=== PATIENT | female | born 1980 | race Caucasian/White ===

== ENCOUNTER 2017-07-07 14:39 | Emergency (ER) | payer OTHER ==
--- NOTE | 2017-07-07 14:52 | PDOC ---
Rapid Medical Evaluation Chief Complaint: Urinary Problem Time Seen by Provider: 07/07/17 14:50 Medical Evaluation: Allergies Allergy/AdvReac Type Severity Reaction Status Date / Time No Known Allergies Allergy Verified 03/13/15 14:28 07/07/17 14:50 I have performed a brief in-person evaluation of this patient. The patient presents with a chief complaint of: urinary pain with hematuria, hx of recurrent UTI and kidney stones,+nausea x 2 days, "i also feel bloated and have trouble breathing", LMP 07/07 Pertinent physical exam findings: well appearing I have ordered the following: UA, UCx, urine preg The patient will proceed to the ED for further evaluation. Discharge Disposition - Diagnosis Urinary problem - Referrals - Patient Instructions - Post Discharge Activity
[2017-07-07 14:53] VITALS: BMI 31.2
--- NOTE | 2017-07-07 15:49 | PDOC ---
History of Present Illness - General Chief Complaint: Urinary Problem Stated Complaint: URINATING BLOOD Time Seen by Provider: 07/07/17 14:50 History Source: Patient Exam Limitations: No Limitations - History of Present Illness Initial Comments: 07/07/17 16:31 Pt is a 37 F with PMHx of RhA, plaque psoariasis, depression, thyroid cancer, fibromyalgia, congenital kidney disease with recurrent renal stones presenting with a 5 day hx of chills, and dysuria. Patient has burning on micturition, with associated suprapubic and L flank pain non relieved with tylenol or percocet at home. No objective fevers, no cervical discharge. There is also significant hematuria, with urinary sediments. Patient has recurrent constipation (is on linzess), no diarrhea. Timing/Duration: getting worse Severity: moderate Associated Symptoms: reports: fever/chills. denies: chest pain, cough, diaphoresis Past History - Past Medical History Allergies/Adverse Reactions: Allergies Allergy/AdvReac Type Severity Reaction Status Date / Time hydrochlorothiazide Allergy Intermediate Rash Verified 07/07/17 14:54 NSAIDS (Non-Steroidal Allergy Intermediate Rash Verified 07/07/17 14:54 Anti-Inflamma Home Medications: Ambulatory Orders Valacyclovir HCl [Valtrex -] 1,000 mg PO DAILY 03/13/15 Ascorbic Acid [Vitamin C] 250 mg PO DAILY 07/07/17 Levothyroxine [Synthroid -] 175 mcg PO DAILY 07/07/17 Oxycodone HCl/Acetaminophen [Percocet 5-325 mg Tablet] 1 - 2 tab PO Q6H #20 tablet MDD 4 07/07/17 Disorders: Yes (recurrent stones) HTN: Yes Psychiatric Problems: Yes (depression) Thyroid Disease: Yes (ca) - Surgical History Abdominal Surgery: Yes (hernia repair) Cholecystectomy: Yes GI Surgery: Yes (sleeve) - Suicide/Smoking/Psychosocial Hx Smoking History: Never smoked Have you smoked in the past 12 months: No Number of Cigarettes Smoked Daily: 6 Information on smoking cessation initiated: No Hx Alcohol Use: No Drug/Substance Use Hx: No Substance Use Type: None Review of Systems - Review of Systems Constitutional: Yes: Chills. No: Fever Respiratory: No: Cough, Shortness of Breath Cardiac (ROS): No: Chest Pain ABD/GI: Yes: Abdominal Distended, Constipated : Yes: Burning, Flank Pain (Left flank), Hematuria Musculoskeletal: Yes: Back Pain Hematologic/Lymphatic: Yes: Easy Bleeding (Patient reports prolonged menses) *Physical Exam - Vital Signs Last Vital Signs Temp Pulse Resp BP Pulse Ox 97.7 F 97 H 16 139/89 100 07/07/17 14:51 07/07/17 14:51 07/07/17 14:51 07/07/17 14:51 07/07/17 14:51 - Physical Exam General Appearance: Yes: Mild Distress HEENT: positive: Other (bilateral hyperemic fissures at angle of mouth) ED Treatment Course - LABORATORY CBC & Chemistry Diagram: 07/07/17 16:16 07/07/17 16:16 - RADIOLOGY Radiology Studies Ordered: 07/07/17 20:[address] renal stones- shows 2mm non obstructive in L renal calculus. Plan: Pain mx - Tabs percocet Continue outpatient follow up D/C home *DC/Admit/Observation/Transfer Diagnosis at time of Disposition: Urinary problem, Urinary tract stones, Renal calculus, left - Discharge Dispostion Disposition: HOME Condition at time of disposition: Fair Admit: No - Prescriptions Prescriptions: Oxycodone HCl/Acetaminophen [Percocet 5-325 mg Tablet] 1 - 2 tab PO Q6H #20 tablet MDD 4 - Referrals Referrals: Alfredo Joyce MD [Staff Physician] - 1 week Víctor Ott MD [Staff Physician] - 2 Days - Patient Instructions Printed Discharge Instructions: Kidney Stones -- Adult Additional Instructions: Call Dr Martel's office to book a follow up in one week Follow up with your primary care physician. Call Dr Ott's clinic at [phone], and say you want to be seen by Dr Melanie Jolley at [facility] this (07/09/17) between 1-4.30pm. Please call to make an appointment. If you have pain take percocet as prescribed. May sure to stay adequately hydrated. If you have worsening symptoms, shortness of breath or chest pain return to the emergency department - Post Discharge Activity - Attestations Physician Attestion: 07/07/17 20:51 Melanie Jolley MD
[2017-07-07] MEDS ORDERED: morphine CARPU-JECT 4 MG/1 ML DISP.SYRIN IVPUSH ONE (16:22)
[2017-07-07 16:26] LABS: URINE APPEARANCE CLOUDY; URINE BILIRUBIN NEGATIVE (<2.0 mg/dL); URINE BLOOD 3+ (NEGATIVE); URINE COLOR DKYELLOW; URINE GLUCOSE (UA) NEGATIVE (NEGATIVE); URINE KETONE TRACE (NEGATIVE); URINE LEUK ESTERASE TRACE (NEGATIVE); URINE NITRITE NEGATIVE (NEGATIVE); URINE PROTEIN NEGATIVE (NEGATIVE)
[2017-07-07 16:29] LABS: HCG,QUALITATIVE URINE NEGATIVE
[2017-07-07] MEDS ORDERED: SODIUM CHLORIDE 1,000 ML IV SCH (16:30)
[2017-07-07] MEDS ORDERED: MORPHINE SULFATE 10 MG/1 ML *VIAL ONE ×2 (16:31→22:23)
[2017-07-07 16:54] LABS: BASO % 0.8 % (0-2.0); EOS % 0.7 % (0-4.5); HEMATOCRIT 30.3 % (32.4-45.2); LYMPH % 20.4 % (8-40); MCHC 32.9 g/dl (32.0-36.0); MEAN CELL VOLUME 82.2 fl (80-96); MEAN PLT VOLUME 7.6 fl (7.5-11.1); MONO % 7.1 % (3.8-10.2); PLATELET COUNT 351 K/MM3 (134-434); RBC 3.69 M/mm3 (3.60-5.2); RDW 15.9 % (11.6-15.6); WHITE BLOOD COUNT 9.7 K/mm3 (4.0-10.0)
[2017-07-07 17:28] LABS: ALBUMIN 3.6 g/dl (3.4-5.0); ALK PHOS 94 U/L (45-117); ANION GAP 5 (8-16); BLOOD UREA NITROGEN 11 mg/dL (7-18); CALCIUM 8.6 mg/dL (8.5-10.1); CHLORIDE 109 mmol/L (98-107); CO2 26 mmol/L (21-32); CREATININE 0.7 mg/dL (0.55-1.02); GLUCOSE,RANDOM 87 mg/dL (74-106); POTASSIUM 4.2 mmol/L (3.5-5.1); SGOT/AST 23 U/L (15-37); SGPT/ALT 23 U/L (12-78); SODIUM 140 mmol/L (136-145); TOT PROT 7.6 g/dl (6.4-8.2)
--- NOTE | 2017-07-07 17:34 | PDOC ---
Attending Attestation - Resident Resident Name: SamreenMelanie I - ED Attending Attestation I have performed the following: I have examined & evaluated the patient, The case was reviewed & discussed with the resident, I agree w/resident's findings & plan, Exceptions are as noted - HPI HPI: 07/07/17 17:30 37-year-old female with history of pyelonephritis, renal colic, fibromyalgia, rheumatic arthritis, cyanotic arthritis presents with hematuria, lower abdominal pain and bilateral flank pain. Patient reports several days of this pain including dysuria and hematuria. Reports some chills but denies fevers. Patient also reports that she is on chronic Percocet for her pain and feels somewhat constipated. - Physicial Exam PE: 07/07/17 17:31 GENERAL: Awake, alert, and fully oriented, uncomfortable appearing. HEAD: No signs of trauma EYES: PERRLA, EOMI, sclera anicteric, conjunctiva clear ENT: Auricles normal inspection, hearing grossly normal, nares patent NECK: Normal ROM, supple LUNGS: Breath sounds equal, clear to auscultation bilaterally. No wheezes, and no crackles HEART: Regular rate and rhythm, normal S1 and S2, no murmurs, rubs or gallops ABDOMEN: Soft. TTP suprapubic. No guarding, no rebound. No masses. Bilateral CVA tenderness bilaterally. EXTREMITIES: Normal range of motion, no edema. No clubbing or cyanosis. No cords, erythema, or tenderness NEUROLOGICAL: Cranial nerves II through XII grossly intact. Normal speech SKIN: Warm, Dry, normal turgor, no rashes or lesions noted. - Medical Decision Making 07/07/17 17:34 Vital Signs Temp Pulse Resp BP Pulse Ox 97.7 F 97 H 16 139/89 100 07/07/17 14:51 07/07/17 14:51 07/07/17 14:51 07/07/17 14:51 07/07/17 14:51 We'll rule out pyelonephritis, renal colic. Labs, urinalysis and spiral CT. IV fluids and pain control and reassess.
[2017-07-07 17:36] LABS: BILIRUBIN,TOTAL < 0.1 mg/dL (0.2-1.0)
[2017-07-07 18:04] LABS: EPI CELLS MODERATE /HPF (FEW); URINE BACTERIA RARE /hpf (NONE SEEN); URINE MUCUS MODERATE
[2017-07-07] MEDS ORDERED: morphine CARPU-JECT 4 MG/1 ML DISP.SYRIN IVPUSH PRN (18:41)
[2017-07-07] MEDS ORDERED: morphine SULFATE 4 MG/ML VIAL ONE (18:50)
[2017-07-07 19:40] LABS: INR 1.01 (0.82-1.09); PROTHROMBIN TIME (PATIENT) 11.4 SEC (9.98-11.88)
[2017-07-07 19:57] LABS: MAGNESIUM 2.1 mg/dL (1.8-2.4); PHOSPHOROUS 2.5 mg/dL (2.5-4.9)
[2017-07-07 20:52] VITALS: BP 166/97; PULSE 78; TEMP 98.4
[2017-07-07] MEDS ORDERED: ACETAMINOPHEN 1000 MG/100 ML VIAL (NON FORMULARY) IVPB ONE (21:06)
--- NOTE | 2017-07-11 09:50 | PDOC ---
Patient Follow-up (Call Back) - Post ED Follow - Up Condition at time of discharge: Fair Disposition at time of original discharge: HOME Reason for Call Back: Abnwl. Microbiology - Disposition Additional Instructions/Notes: Patient called back regarding positive urine culture without sensitivities however the patient is not on any antibiotics. She was initially seen on July 07 and treated but without any antibiotics for some vaginal irritation and was given some Valtrex at that time. She was also in on July 08 however she eloped during that time. I've attempted to call her back to have her receive regarding her culture at the phone number of [phone] and left a message regarding her to return back to the emergency room for further workup of this positive urine culture.
--- NOTE | 2017-07-13 15:05 | PDOC ---
Patient Follow-up (Call Back) - Post ED Follow - Up Condition at time of discharge: Fair Disposition at time of original discharge: HOME Reason for Call Back: Abnwl. Microbiology (Patient called today to follow-up on her urine culture results. Patient states that she was placed on Keflex as an outpatient through Dr. seymour's office. She states that she still feels feverish and has increasing pain. Informed patient that if she was not getting better despite antibiotic treatment, she should return to the ER for further evaluation. Patient understands and states that she will return.)
== END 2017-07-07 22:38 | disposition home or self-care (01) ==
LOC: JER 14:39
PROC: 3E033NZ Introduction of Analgesics, Hypnotics, Sedatives into Peripheral Vein, Percutaneous Approach (ICD-10-PCS; principal; 2017-07-07)
PROC: 3E0337Z Introduction of Electrolytic and Water Balance Substance into Peripheral Vein, Percutaneous Approach (ICD-10-PCS; 2017-07-07)
DX: N20.0 Calculus of kidney (principal); Z87.442 Personal history of urinary calculi; I10 Essential (primary) hypertension; F32.9 Major depressive disorder, single episode, unspecified; Z85.850 Personal history of malignant neoplasm of thyroid; M79.7 Fibromyalgia; L40.0 Psoriasis vulgaris
CPT/HCPCS: 36415; 74176; 80053; 81003; 81015; 83605; 83735; 84100; 84703; 85025; 85610; 85730; 87040; 87086; 87186; 96360; 96361; 96374; 96375; 99284-25; J7030

== ENCOUNTER 2017-07-08 14:46 | Emergency (ER) | payer OTHER ==
--- NOTE | 2017-07-08 15:08 | PDOC ---
Rapid Medical Evaluation Chief Complaint: Pain Time Seen by Provider: 07/08/17 15:06 Medical Evaluation: Allergies Allergy/AdvReac Type Severity Reaction Status Date / Time hydrochlorothiazide Allergy Intermediate Rash Verified 07/08/17 15:06 NSAIDS (Non-Steroidal Allergy Intermediate Rash Verified 07/08/17 15:06 Anti-Inflamma 07/08/17 15:07 I have performed a brief in-person evaluation of this patient. The patient presents with a chief complaint of: "i know i'm passing stones", hematuria, now have fever, unrelieved by Tylenol, prescribed Percocet yesterday has not been able to cone picker medication, "i'm sweating alot" Pertinent physical exam findings: tenderness to b/l lower abdomen, L flank pain I have ordered the following: UA, Ucx The patient will proceed to the ED for further evaluation. Discharge Disposition - Diagnosis Urinary problem - Referrals - Patient Instructions - Post Discharge Activity
[2017-07-08 15:11] VITALS: BP 155/90; PULSE 89; TEMP 98.2; BMI 31.2
== END 2017-07-08 15:48 | disposition home or self-care (01) ==
LOC: JER 14:46
DX: N39.8 Other specified disorders of urinary system (principal)
CPT/HCPCS: 99281-25

== ENCOUNTER 2017-08-04 16:25 | Emergency (ER) | payer OTHER ==
--- NOTE | 2017-08-04 16:32 | PDOC ---
Rapid Medical Evaluation Time Seen by Provider: 08/04/17 16:31 Medical Evaluation: Allergies Allergy/AdvReac Type Severity Reaction Status Date / Time hydrochlorothiazide Allergy Intermediate Rash Verified 07/08/17 15:06 NSAIDS (Non-Steroidal Allergy Intermediate Rash Verified 07/08/17 15:06 Anti-Inflamma 08/04/17 16:31 I have performed a brief in-person evaluation of this patient. The patient presents with a chief complaint of: Sent in by PMD for generalized swelling w/ dysuria w/ hematuria x [address] Sent in by [address] Wood. H/o RA, psoriases, congenital kidney disease, renal stones, utis, hypothyroid, fibromyalgia, RA, HTN, smoker Pertinent physical exam findings:stable I have ordered the following:labs The patient will proceed to the ED for further evaluation 08/04/17 16:33
[2017-08-04 16:39] VITALS: BP 151/94; PULSE 99; TEMP 98.3; BMI 31.2
--- NOTE | 2017-08-04 17:58 | PDOC ---
History of Present Illness - General History Source: Patient Exam Limitations: No Limitations - History of Present Illness Initial Comments: 08/04/17 18:41 The patient is a 37 year old female with a significant past medical history of recurrent renal stones, HTN, medullary sponge kidney, UTIS, hypothyroid, fibromyalgia, congenital kidney disease, psoriasis, and RA who presents to the emergency department for evaluation of a 3 day history of hematuria and generalized edema. The patient reports multiple episodes of dysuria and hematuria which had prompted her to visit her PCP. She reports generalized pain and edema in her feet, legs, fingers, lips, and cheeks. She reports associated symptoms of back pain, fever, and chills. She states she called her PCP (Dr. Ojeda) to explain her symptoms and he prompted her to visit the ED for further evaluation. She reports recently being seen for UTI and was prescribed Cephalexin(6 days) which did not work, and followed up with Levaquin (7 days) 2 weeks ago. She states she currently does not have a Urologist due to her insurance changing. The patient denies chest pain, shortness of breath, headache, and dizziness. Denies nausea, vomiting, diarrhea, and constipation. Denies urinary frequency and urgency Allergies: Hydrochlorothiazide, NSAIDS Past surgical history: hernia repair, 3x, cholecystectomy, GI sleeve. Social history: Current everyday smoker. No reported alcohol or drug use. PCP: Dr. Ott/[place]. <Juan Manuel Gonzales - Last Filed: 08/04/17 18:48> <Antionette Fuentes - Last Filed: 08/04/17 19:46> - General Chief Complaint: Pain Stated Complaint: PCP SENT Time Seen by Provider: 08/04/17 16:31 Past History <Juan Manuel Gonzales - Last Filed: 08/04/17 18:48> - Past Medical History COPD: No Disorders: Yes (recurrent stones) HTN: Yes Kidney Stones: No (M.SPONGE KIDNEY) Psychiatric Problems: Yes (depression, fibromyalgias, R.arthritis) Thyroid Disease: Yes (ca) Other medical history: PSORIASIS - Surgical History Abdominal Surgery: Yes (hernia repair) Cholecystectomy: Yes GI Surgery: Yes (sleeve) - Suicide/Smoking/Psychosocial Hx Smoking History: Never smoked Have you smoked in the past 12 months: Yes Number of Cigarettes Smoked Daily: 6 Information on smoking cessation initiated: Yes 'Breaking Loose' booklet given: 08/04/17 Hx Alcohol Use: No Drug/Substance Use Hx: No Substance Use Type: None <Antionette Fuenets - Last Filed: 08/04/17 19:46> - Past Medical History Allergies/Adverse Reactions: Allergies Allergy/AdvReac Type Severity Reaction Status Date / Time hydrochlorothiazide Allergy Intermediate Rash Verified 07/08/17 15:06 NSAIDS (Non-Steroidal Allergy Intermediate Rash Verified 07/08/17 15:06 Anti-Inflamma Home Medications: Ambulatory Orders Valacyclovir HCl [Valtrex -] 1,000 mg PO DAILY 03/13/15 Ascorbic Acid [Vitamin C] 250 mg PO DAILY 07/07/17 Levothyroxine [Synthroid -] 175 mcg PO DAILY 07/07/17 Oxycodone HCl/Acetaminophen [Percocet 5-325 mg Tablet] 1 - 2 tab PO Q6H #20 tablet MDD 4 07/07/17 Ibuprofen [Motrin -] 600 mg PO Q6H PRN #20 tablet 07/21/17 Levofloxacin 750 mg PO DAILY #5 tablet 07/21/17 Abd/GI Specific PMHX - Complaint Specific PMHX Colitis: No Diverticulitis: No Gall Bladder Disease: No GERD: No Hepatitis: No Irritable Bowel Synd (IBS): No Pancreatitis: No GI Ulcer Disease: No <Antionette Fuentes - Last Filed: 08/04/17 19:46> Review of Systems - Review of Systems Able to Perform ROS?: Yes Comments:: CONSTITUTIONAL: (+)Fever. (+)Chills. (+)Chronic pain. Absent: diaphoresis, generalized weakness, malaise, loss of appetite HEENT: Absent: rhinorrhea, nasal congestion, throat pain, throat swelling, difficulty swallowing, mouth swelling, ear pain, eye pain, visual Changes CARDIOVASCULAR: Absent: chest pain, syncope, palpitations, irregular heart rate, lightheadedness , peripheral edema RESPIRATORY: Absent: cough, shortness of breath, dyspnea with exertion, orthopnea, wheezing, stridor, hemoptysis GASTROINTESTINAL: Absent: abdominal pain, abdominal distension, nausea, vomiting, diarrhea, constipation, melena, hematochezia GENITOURINARY: (+)Dysuria. (+)Hematuria. Absent: frequency, urgency, hesitancy, flank pain, genital pain MUSCULOSKELETAL: (+)Back pain. (+)Bilateral edema in legs. Absent: myalgia, arthralgia, joint swelling EXTREMITIES: (+)Bilateral feet swelling. SKIN: Absent: rash, itching, pallor HEMATOLOGIC/IMMUNOLOGIC: Absent: easy bleeding, easy bruising, lymphadenopathy, frequent infections ENDOCRINE: Absent: unexplained weight gain, unexplained weight loss, heat intolerance, cold intolerance NEUROLOGIC: Absent: headache, focal weakness or paresthesias, dizziness, unsteady gait, seizure, mental status changes, bladder or bowel incontinence PSYCHIATRIC: Absent: anxiety, depression, suicidal or homicidal ideation, hallucinations. <Juan Manuel Gonzales - Last Filed: 08/04/17 18:48> *Physical Exam - Vital Signs Last Vital Signs Temp Pulse Resp BP Pulse Ox 98.3 F 99 H 18 151/94 100 08/04/17 16:33 08/04/17 16:33 08/04/17 16:33 08/04/17 16:33 08/04/17 16:33 - Physical Exam Comments: GENERAL: Well developed, well nourished. Awake and alert. No acute distress. HEENT: Normocephalic, atraumatic. PERRLA, EOMI. No conjunctival pallor. Sclera are non- icteric. Moist mucous membranes. Oropharynx is clear. NECK: Supple. Full ROM. No JVD. Carotid pulses 2+ and symmetric, without bruits. No thyromegaly. No lymphadenopathy. CARDIOVASCULAR: Regular rate and rhythm. No murmurs, rubs, or gallops. Distal pulses are 2+ and symmetric. PULMONARY: No evidence of respiratory distress. Lungs clear to auscultation bilaterally. No wheezing, rales or rhonchi. ABDOMINAL: Soft. Non-tender. Non-distended. No rebound or guarding. No organomegaly. Normoactive bowel sounds. MUSCULOSKELETAL Normal range of motion at all joints. No bony deformities or tenderness. No CVA tenderness. EXTREMITIES: (+)Bilateral pedal edema. Otherwise normal. SKIN: Warm and dry. Normal capillary refill. No rashes. No jaundice. NEUROLOGICAL: Alert, awake, appropriate. Cranial nerves 2-12 intact. No deficits to light touch and temperature in face, upper extremities and lower extremities. No motor deficits in the in face, upper extremities and lower extremities. Normoreflexic in the upper and lower extremities. Normal speech. Toes are down- going bilaterally. Gait is normal without ataxia. PSYCHIATRIC: Cooperative. Good eye contact. Appropriate mood and affect. <Juan Manuel Gonzales - Last Filed: 08/04/17 18:48> - Vital Signs Last Vital Signs Temp Pulse Resp BP Pulse Ox 98.3 F 99 H 18 151/94 100 08/04/17 16:33 08/04/17 16:33 08/04/17 16:33 08/04/17 16:33 08/04/17 16:33 <Antionette Fuentes - Last Filed: 08/04/17 19:46> ED Treatment Course - LABORATORY CBC & Chemistry Diagram: 08/04/17 18:18 08/04/17 18:18 - ADDITIONAL ORDERS Additional order review: Laboratory Results 08/04/17 16:10 Urine HCG, Qual Negative 08/04/17 18:18 RBC 3.52 L MCV 77.8 L MCHC 32.9 RDW 16.5 H MPV 6.9 L Neutrophils % 56.0 D Lymphocytes % 34.3 D Monocytes % 6.5 Eosinophils % 1.9 D Basophils % 1.3 <Juan Manuel Gonzalse - Last Filed: 08/04/17 18:48> - LABORATORY CBC & Chemistry Diagram: 08/04/17 18:18 08/04/17 18:18 <Antionette Fuentes - Last Filed: 08/04/17 19:46> Medical Decision Making - Medical Decision Making Consulted with Dr. Wood at 18:35. <Juan Manuel Gonzales - Last Filed: 08/04/17 18:48> *DC/Admit/Observation/Transfer - Attestations Scribe Attestion: Documentation prepared by Juan Manuel Gonzales, acting as medical office representative for Antionette Fuentes MD. <Juan Manuel Gonzales - Last Filed: 08/04/17 18:48> <Antionette Fuentes - Last Filed: 08/04/17 19:46> Diagnosis at time of Disposition: Urinary problem - Discharge Dispostion Disposition: HOME Condition at time of disposition: Stable - Referrals Referrals: Piero Reyes MD [Staff Physician] - Tino Reyes MD [Staff Physician] -
[2017-08-04 18:24] LABS: BASO % 1.3 % (0-2.0); EOS % 1.9 % (0-4.5); HEMATOCRIT 27.4 % (32.4-45.2); LYMPH % 34.3 % (8-40); MCH 25.6 pg (25.7-33.7); MCHC 32.9 g/dl (32.0-36.0); MEAN CELL VOLUME 77.8 fl (80-96); MEAN PLT VOLUME 6.9 fl (7.5-11.1); MONO % 6.5 % (3.8-10.2); PLATELET COUNT 282 K/MM3 (134-434); RBC 3.52 M/mm3 (3.60-5.2); RDW 16.5 % (11.6-15.6)
[2017-08-04 18:34] LABS: HCG,QUALITATIVE URINE NEGATIVE
[2017-08-04 18:56] LABS: ALBUMIN 3.5 g/dl (3.4-5.0); ANION GAP 6 (8-16); BILIRUBIN,TOTAL 0.1 mg/dL (0.2-1.0); BLOOD UREA NITROGEN 13 mg/dL (7-18); CALCIUM 8.5 mg/dL (8.5-10.1); CHLORIDE 106 mmol/L (98-107); CO2 27 mmol/L (21-32); CREATININE 0.8 mg/dL (0.55-1.02); GLUCOSE,RANDOM 81 mg/dL (74-106); POTASSIUM 4.3 mmol/L (3.5-5.1); SGOT/AST 21 U/L (15-37); SGPT/ALT 20 U/L (12-78); SODIUM 139 mmol/L (136-145); TOT PROT 7.3 g/dl (6.4-8.2)
[2017-08-04 18:58] LABS: ALK PHOS 98 U/L (45-117)
[2017-08-04 19:24] LABS: URINE APPEARANCE CLEAR; URINE BILIRUBIN NEGATIVE (<2.0 mg/dL); URINE COLOR LTYELLOW; URINE GLUCOSE (UA) NEGATIVE (NEGATIVE); URINE KETONE NEGATIVE (NEGATIVE); URINE LEUK ESTERASE NEGATIVE (NEGATIVE); URINE NITRITE NEGATIVE (NEGATIVE); URINE PROTEIN NEGATIVE (NEGATIVE); URINE UROBILINOGEN NEGATIVE mg/dL (0.2-1.0)
[2017-08-04 19:27] LABS: EPI CELLS RARE /HPF (FEW)
[2017-08-04] MEDS ORDERED: ACETAMINOPHEN 325 MG TABLET (FP) PO ONE (20:02)
[2017-08-04] MEDS ORDERED: ACETAMINOPHEN 325 MG TABLET (FP) ONE (20:06)
== END 2017-08-04 20:21 | disposition home or self-care (01) ==
LOC: JER 16:25
DX: R39.89 Other symptoms and signs involving the genitourinary system (principal); I10 Essential (primary) hypertension; E03.9 Hypothyroidism, unspecified; L30.9 Dermatitis, unspecified; N28.89 Other specified disorders of kidney and ureter; M06.80 Other specified rheumatoid arthritis, unspecified site; F17.210 Nicotine dependence, cigarettes, uncomplicated; Z88.8 Allergy status to other drugs, medicaments and biological substances; Z87.442 Personal history of urinary calculi
CPT/HCPCS: 36415; 80053; 81003; 81015; 82550; 82553; 84484; 84703; 85025; 87086; 99285-25

== ENCOUNTER 2017-09-01 18:53 | Emergency (ER) | payer OTHER ==
[2017-09-01 19:37] VITALS: BP 147/100; PULSE 100; TEMP 98.9; BMI 29.5
[2017-09-01] MEDS ORDERED: SODIUM CHLORIDE 1,000 ML IV STA (21:03)
--- NOTE | 2017-09-01 21:11 | PDOC ---
History of Present Illness - General Chief Complaint: Weakness Stated Complaint: FATIGUE Time Seen by Provider: 09/01/17 20:48 History Source: Patient - History of Present Illness Timing/Duration: reports: constant Quality: reports: severe Past History - Past Medical History Allergies/Adverse Reactions: Allergies Allergy/AdvReac Type Severity Reaction Status Date / Time hydrochlorothiazide Allergy Intermediate Rash Verified 09/01/17 19:29 NSAIDS (Non-Steroidal Allergy Intermediate Rash Verified 09/01/17 19:29 Anti-Inflamma Home Medications: Ambulatory Orders Valacyclovir HCl [Valtrex -] 1,000 mg PO DAILY 03/13/15 Ascorbic Acid [Vitamin C] 250 mg PO DAILY 07/07/17 Levothyroxine [Synthroid -] 175 mcg PO DAILY 07/07/17 Oxycodone HCl/Acetaminophen [Percocet 5-325 mg Tablet] 1 - 2 tab PO Q6H #20 tablet MDD 4 07/07/17 Ibuprofen [Motrin -] 600 mg PO Q6H PRN #20 tablet 07/21/17 Levofloxacin 750 mg PO DAILY #5 tablet 07/21/17 Diphenhydramine HCl [Benadryl -] 25 mg PO Q8H PRN #21 capsule 08/04/17 Ibuprofen [Motrin -] 600 mg PO TID PRN #21 tablet 08/04/17 Ondansetron HCl [Zofran] 4 mg PO Q8H #12 tablet 09/02/17 COPD: No Disorders: Yes (recurrent stones) HTN: Yes Kidney Stones: No (M.SPONGE KIDNEY) Psychiatric Problems: Yes (depression, fibromyalgias, rheumatoid arthritis) Thyroid Disease: Yes (ca) Other medical history: psoriasis - Surgical History Abdominal Surgery: Yes (hernia repair) Cholecystectomy: Yes GI Surgery: Yes (sleeve) - Suicide/Smoking/Psychosocial Hx Smoking History: Current every day smoker Have you smoked in the past 12 months: No Number of Cigarettes Smoked Daily: 5 Information on smoking cessation initiated: No 'Breaking Loose' booklet given: 08/04/17 Hx Alcohol Use: No Drug/Substance Use Hx: No Substance Use Type: None Abd/GI Specific PMHX - Complaint Specific PMHX Colitis: No Diverticulitis: No Gall Bladder Disease: No GERD: No Hepatitis: No Irritable Bowel Synd (IBS): No Pancreatitis: No GI Ulcer Disease: No Review of Systems - Review of Systems Constitutional: Yes: Chills, Fever ABD/GI: Yes: Diarrhea, Nausea, Vomiting. No: Blood Streaked Bowels, Constipated , Abdominal cramping : Yes: Hematuria. No: Dysuria, Flank Pain *Physical Exam - Vital Signs Last Vital Signs Temp Pulse Resp BP Pulse Ox 98.9 F 100 H 18 147/100 09/01/17 19:29 09/01/17 19:29 09/01/17 19:29 09/01/17 19:29 - Physical Exam Comments: 09/01/17 21:27 well keron in NAD General Appearance: Yes: Appropriately Dressed. No: Apparent Distress HEENT: positive: Normal Voice Neck: positive: Supple Respiratory/Chest: positive: Lungs Clear, Normal Breath Sounds. negative: Respiratory Distress Cardiovascular: positive: Regular Rate, S1, S2 Gastrointestinal/Abdominal: positive: Normal Bowel Sounds, Soft. negative: Tender, Distended, Guarding, Rebound Musculoskeletal: negative: CVA Tenderness Integumentary: positive: Dry, Warm Neurologic: positive: Fully Oriented, Alert, Normal Mood/Affect ED Treatment Course - LABORATORY CBC & Chemistry Diagram: 09/01/17 21:42 09/01/17 21:42 Medical Decision Making - Medical Decision Making 09/01/17 21:09 37-year-old female, history of medullary sponge kidneys with recurrent renal stones and UTIs, fibromyalgia, hypothyroid, psoriasis and RA who presents with nausea, vomiting and diarrhea. Patient states for the past 6 days, she's had numerous episodes of watery, non-bloody stools w/ ? mucus and vomiting. Also reports at one point having low-grade fever of 101. Denies any abdominal pain, hematochezia. No recent travel, sick contacts or unusual food. Last used levaquin last month for uti. No history of similar episode. Continues to have intermittent gross hematuria given her congenital kidney disease, but denies any dysuria, freq or flank pain at this time see exam Possible gastroenteritis Some concern for cdif given frequent abx use for frequent utis, last time last month Tachy to 100, exam otherwise unremarkable -IVF -zofran -labs -stool studies -reassess 09/01/17 22:42 09/02/17 00:08 Labs unremarkable. UA neg expect for 1+ bld (has chronic hematuria 2/2 congenital kidney issues per pt). Patient now complaining of generalized body pain. Has history of fibromyalgia. No abdominal pain at this time and belly remains benign on reassessment. Has been eating the whole time she has been in ED. Will tx pain and discharge w/ supportive treatment for most likely viral gastroenteritis. Patient unable to give a stool sample here. Reasons to return discussed with patient, otherwise, to follow-up with her PMD 09/02/17 00:45 *DC/Admit/Observation/Transfer Diagnosis at time of Disposition: Diarrhea Qualifiers: Diarrhea type: unspecified type Qualified Code(s): R19.7 - Diarrhea, unspecified Nausea & vomiting Qualifiers: Vomiting type: unspecified Vomiting Intractability: non-intractable Qualified Code(s): R11.2 - Nausea with vomiting, unspecified - Discharge Dispostion Disposition: HOME Condition at time of disposition: Improved - Prescriptions Prescriptions: Ondansetron HCl [Zofran] 4 mg PO Q8H #12 tablet - Referrals - Patient Instructions Printed Discharge Instructions: DI for Viral Gastroenteritis -- Adult Additional Instructions: Maintain adequate hydration, for the remainder of your symptoms, maintain a bland diet such as bananas, rice, applesauce and toast. These foods can help make your stools firmer and also replete certainly essential electrolytes. Your urine did not show sign of infection but we always send a confirmatory test and will contact you with any change. You can also call us in 2-3 days at [phone] for results. Please follow up with your primary care physician this week - Post Discharge Activity Forms/Work/School Notes: Back to Work
[2017-09-01] MEDS ORDERED: ONDANSETRON 4 MG/2 ML VIAL IVPUSH ONE (21:27)
[2017-09-01] MEDS ORDERED: ONDANSETRON 4 MG/2 ML VIAL ONE (21:52)
[2017-09-01 22:05] LABS: BASO % 1.4 % (0-2.0); EOS % 2.3 % (0-4.5); HEMATOCRIT 31.9 % (32.4-45.2); HEMOGLOBIN 10.2 GM/dL (10.7-15.3); LYMPH % 38.7 % (8-40); MCH 24.3 pg (25.7-33.7); MCHC 31.9 g/dl (32.0-36.0); MEAN CELL VOLUME 76.2 fl (80-96); MEAN PLT VOLUME 8.1 fl (7.5-11.1); MONO % 9.4 % (3.8-10.2); NEUT % 48.2 % (42.8-82.8); PLATELET COUNT 390 K/MM3 (134-434); RBC 4.18 M/mm3 (3.60-5.2); RDW 17.7 % (11.6-15.6); WHITE BLOOD COUNT 9.3 K/mm3 (4.0-10.0)
[2017-09-01 22:16] LABS: ALBUMIN 3.7 g/dl (3.4-5.0); ALK PHOS 100 U/L (45-117); ANION GAP 7 (8-16); BILIRUBIN,TOTAL 0.1 mg/dL (0.2-1.0); BLOOD UREA NITROGEN 9 mg/dL (7-18); CALCIUM 8.8 mg/dL (8.5-10.1); CHLORIDE 106 mmol/L (98-107); CO2 25 mmol/L (21-32); CREATININE 0.9 mg/dL (0.55-1.02); GLUCOSE,RANDOM 84 mg/dL (74-106); LIPASE 226 U/L (73-393); POTASSIUM 4.7 mmol/L (3.5-5.1); SGOT/AST 13 U/L (15-37); SGPT/ALT 16 U/L (12-78); SODIUM 138 mmol/L (136-145)
[2017-09-01 22:59] LABS: HCG,QUALITATIVE URINE NEGATIVE
[2017-09-01] MEDS ORDERED: ACETAMINOPHEN 325 MG TABLET (FP) PO ONE (23:11)
[2017-09-01] MEDS ORDERED: ACETAMINOPHEN 325 MG TABLET (FP) ONE (23:15)
[2017-09-02 00:01] LABS: URINE APPEARANCE CLEAR; URINE BILIRUBIN NEGATIVE (<2.0 mg/dL); URINE BLOOD 1+ (NEGATIVE); URINE COLOR STRAW; URINE GLUCOSE (UA) NEGATIVE (NEGATIVE); URINE KETONE NEGATIVE (NEGATIVE); URINE LEUK ESTERASE NEGATIVE (NEGATIVE); URINE NITRITE NEGATIVE (NEGATIVE); URINE PROTEIN NEGATIVE (NEGATIVE); URINE UROBILINOGEN NEGATIVE mg/dL (0.2-1.0)
[2017-09-02] MEDS ORDERED: ONDANSETRON 4 MG TABLET PO ONE (00:08)
[2017-09-02] MEDS ORDERED: traMADol HCL 50 MG TABLET PO ONE (00:08)
[2017-09-02 00:11] LABS: EPI CELLS RARE /HPF (FEW)
[2017-09-02] MEDS ORDERED: ONDANSETRON 4 MG/2 ML VIAL ONE (00:50)
[2017-09-02] MEDS ORDERED: traMADol HCL 50 MG TABLET ONE (00:50)
== END 2017-09-02 01:09 | disposition home or self-care (01) ==
LOC: JER 18:53
DX: A08.4 Viral intestinal infection, unspecified (principal); B97.89 Other viral agents as the cause of diseases classified elsewhere; I10 Essential (primary) hypertension; F41.9 Anxiety disorder, unspecified; M79.7 Fibromyalgia; M06.9 Rheumatoid arthritis, unspecified; E03.9 Hypothyroidism, unspecified; L40.9 Psoriasis, unspecified; F17.210 Nicotine dependence, cigarettes, uncomplicated; Z87.442 Personal history of urinary calculi
CPT/HCPCS: 36415; 80053; 81003; 81015; 83690; 84703; 85025; 87086; 99281-25; J7030

== ENCOUNTER 2017-12-09 20:04 | Emergency (ER) | payer OTHER ==
[2017-12-09 20:08] VITALS: BP 142/82; PULSE 90; TEMP 98.8; BMI 32.3
--- NOTE | 2017-12-09 20:12 | PDOC ---
Rapid Medical Evaluation Chief Complaint: Vaginal Bleeding Time Seen by Provider: 12/09/17 20:09 Medical Evaluation: Allergies Allergy/AdvReac Type Severity Reaction Status Date / Time hydrochlorothiazide Allergy Intermediate Rash Verified 12/09/17 20:08 NSAIDS (Non-Steroidal Allergy Intermediate Rash Verified 12/09/17 20:08 Anti-Inflamma Vital Signs Temp Pulse Resp BP Pulse Ox 98.8 F 90 18 142/82 98 12/09/17 20:05 12/09/17 20:05 12/09/17 20:05 12/09/17 20:05 12/09/17 20:05 12/09/17 20:15 I have performed a brief in person evaluation of this patient. The patient presents with chief complaint of : vaginal bleeding, fever, N/V, body aches Pertinent PE findings: normal exam I have ordered the following: CBC, CMP,HCG, UA The patient will proceed to the ER for further evaluation. Discharge Disposition - Diagnosis Abnormal vaginal bleeding - Referrals Referrals: Janell Bunch DO [Primary Care Provider] - - Patient Instructions - Post Discharge Activity
[2017-12-09 20:36] LABS: BASO % 1.5 % (0-2.0); EOS % 2.2 % (0-4.5); HEMATOCRIT 29.1 % (32.4-45.2); HEMOGLOBIN 9.4 GM/dL (10.7-15.3); LYMPH % 25.4 % (8-40); MCH 23.6 pg (25.7-33.7); MCHC 32.1 g/dl (32.0-36.0); MEAN CELL VOLUME 73.4 fl (80-96); MEAN PLT VOLUME 7.3 fl (7.5-11.1); MONO % 5.8 % (3.8-10.2); NEUT % 65.1 % (42.8-82.8); PLATELET COUNT 371 K/MM3 (134-434); RBC 3.97 M/mm3 (3.60-5.2); RDW 18.5 % (11.6-15.6); WHITE BLOOD COUNT 10.4 K/mm3 (4.0-10.0)
[2017-12-09 21:12] LABS: ALBUMIN 3.1 g/dl (3.4-5.0); ALK PHOS 78 U/L (45-117); ANION GAP 9 MMOL/L (8-16); BILIRUBIN,TOTAL 0.1 mg/dL (0.2-1.0); BLOOD UREA NITROGEN 9 mg/dL (7-18); CALCIUM 8.6 mg/dL (8.5-10.1); CHLORIDE 111 mmol/L (98-107); CO2 21 mmol/L (21-32); CREATININE 0.8 mg/dL (0.55-1.02); GLUCOSE,RANDOM 112 mg/dL (74-106); POTASSIUM 4.3 mmol/L (3.5-5.1); SGOT/AST 16 U/L (15-37); SGPT/ALT 20 U/L (13-61); SODIUM 141 mmol/L (136-145); TOT PROT 7.2 g/dl (6.4-8.2)
[2017-12-09 21:17] LABS: URINE APPEARANCE SLCLOUDY; URINE BILIRUBIN NEGATIVE (<2.0 mg/dL); URINE COLOR DKYELLOW; URINE GLUCOSE (UA) NEGATIVE (NEGATIVE); URINE KETONE TRACE (NEGATIVE); URINE LEUK ESTERASE TRACE (NEGATIVE); URINE NITRITE NEGATIVE (NEGATIVE)
[2017-12-09 21:20] LABS: URINE PROTEIN 1+ (NEGATIVE)
[2017-12-09 21:23] LABS: EPI CELLS FEW /HPF (FEW); URINE BACTERIA RARE /hpf (NONE SEEN); URINE MUCUS RARE
--- NOTE | 2017-12-09 21:29 | PDOC ---
History of Present Illness - General History Source: Patient, Old Records Exam Limitations: No Limitations - History of Present Illness Initial Comments: 12/09/17 22:55 The patient is a 37 year old female, with a significant past medical history of HTN, recurrent kidney stones, depression, fibromyalgias, arthritis, thyroid CA, who presents to the ED complaining of vaginal bleeding, abdominal pain, fever, nausea, vomiting and diarrhea for the past 3 weeks. She describes her vaginal bleeding as a brown blood, for which she is going through 3 overnight pads a day. She notes that she saw her VP [employer] Dr. Bunch today, who sent her to the ED for further evaluation. She also notes that she is scheduled to have a D&C this upcoming week. She reports that she has never had a D&C in the past. She notes that she usually has The patient denies chest pain, shortness of breath, headache and dizziness. Denies chills, or constipation. Denies dysuria, frequency, urgency and hematuria. Allergies: NSAIDS, hydrochlorothiazide Past surgical history: Hernia repair, cholecystectomy, GI sleeve Social History: Cigarette use (4 daily). No drug or alcohol use noted. <Evan Kamara - Last Filed: 12/09/17 22:55> <Safia Morales - Last Filed: 12/10/17 00:53> - General Chief Complaint: Vaginal Bleeding Stated Complaint: PCP SENT Time Seen by Provider: 12/09/17 20:09 Past History <Evan Kamara - Last Filed: 12/09/17 22:55> - Past Medical History COPD: No DVT: No Disorders: Yes (recurrent stones) HTN: Yes Kidney Stones: No (M.SPONGE KIDNEY) Psychiatric Problems: Yes (depression, fibromyalgias, arthritis) Thyroid Disease: Yes (ca) - Surgical History Abdominal Surgery: Yes (hernia repair) Cholecystectomy: Yes GI Surgery: Yes (sleeve) - Suicide/Smoking/Psychosocial Hx Smoking History: Never smoked Have you smoked in the past 12 months: Yes Number of Cigarettes Smoked Daily: 4 'Breaking Loose' booklet given: 11/19/17 Hx Alcohol Use: No Drug/Substance Use Hx: No Substance Use Type: None <Safia Morales - Last Filed: 12/10/17 00:53> - Past Medical History Allergies/Adverse Reactions: Allergies Allergy/AdvReac Type Severity Reaction Status Date / Time hydrochlorothiazide Allergy Intermediate Rash Verified 12/09/17 20:08 NSAIDS (Non-Steroidal Allergy Intermediate Rash Verified 12/09/17 20:08 Anti-Inflamma Home Medications: Ambulatory Orders Valacyclovir HCl [Valtrex -] 1,000 mg PO DAILY 03/13/15 Ascorbic Acid [Vitamin C] 250 mg PO DAILY 07/07/17 Levothyroxine [Synthroid -] 175 mcg PO DAILY 07/07/17 Oxycodone HCl/Acetaminophen [Percocet 5-325 mg Tablet] 1 - 2 tab PO Q6H #20 tablet MDD 4 07/07/17 Ibuprofen [Motrin -] 600 mg PO Q6H PRN #20 tablet 07/21/17 Levofloxacin 750 mg PO DAILY #5 tablet 07/21/17 Diphenhydramine HCl [Benadryl -] 25 mg PO Q8H PRN #21 capsule 08/04/17 Ibuprofen [Motrin -] 600 mg PO TID PRN #21 tablet 08/04/17 Ondansetron HCl [Zofran] 4 mg PO Q8H #12 tablet 09/02/17 Bumetanide [Bumex -] 0.5 mg PO DAILY #7 tablet 10/07/17 Diphenhydramine HCl [Benadryl -] 25 mg PO Q8H PRN #21 capsule 10/07/17 Metoclopramide HCl [Reglan] 5 mg PO DAILY #14 tablet 11/19/17 Acetaminophen Suppository [Tylenol .Suppository -] 650 mg NH Q6H PRN #20 supp.rect 12/10/17 Mag Hydrox/Aluminum Hyd/Simeth [Maalox Maximum Strength Susp] 355 ml PO DAILY PRN #1 oral.susp 12/10/17 Ondansetron [Zofran Odt -] 4 mg SL TID PRN #14 od.tablet 12/10/17 Ranitidine [Zantac -] 150 mg PO DAILY #14 tablet 12/10/17 Review of Systems - Review of Systems Able to Perform ROS?: Yes Comments:: 12/09/17 22:55 GENERAL/CONSTITUTIONAL: (+) Fever. No chills. No weakness. HEAD, EYES, EARS, NOSE AND THROAT: No change in vision. No ear pain or discharge. No sore throat. GASTROINTESTINAL: (+) Abdominal pain, nausea, vomiting, diarrhea. No constipation. GENITOURINARY: (+) Vaginal bleeding. No dysuria, frequency, or change in urination. CARDIOVASCULAR: No chest pain or shortness of breath. RESPIRATORY: No cough, wheezing, or hemoptysis. MUSCULOSKELETAL: No joint or muscle swelling or pain. No neck or back pain. SKIN: No rash NEUROLOGIC: No headache, vertigo, loss of consciousness, or change in strength/ sensation. ENDOCRINE: No increased thirst. No abnormal weight change. HEMATOLOGIC/LYMPHATIC: No anemia, easy bleeding, or history of blood clots. ALLERGIC/IMMUNOLOGIC: No hives or skin allergy. <Evan Kamara - Last Filed: 12/09/17 22:55> *Physical Exam - Vital Signs Last Vital Signs Temp Pulse Resp BP Pulse Ox 98.8 F 90 18 142/82 98 12/09/17 20:05 12/09/17 20:05 12/09/17 20:05 12/09/17 20:05 12/09/17 20:05 - Physical Exam Comments: 12/09/17 22:55 Constitutional: Awake, alert, oriented. No acute distress. Head: Normocephalic. Atraumatic Eyes: PERRL. EOMI. Conjunctivae are not pale. ENT: Mucous membranes are moist and intact. Posterior pharynx without exudates or erythema. Uvula midline. Neck: Supple. Full ROM. No lymphadenopathy. Cardiovascular: Regular rate. Regular rhythm. S1, S2 regular. Distal pulses are 2+ and symmetric. Pulmonary/Chest: No evidence of respiratory distress. Clear to auscultation bilaterally No wheezing, rales or rhonchi. Abdominal: Soft and non-distended. There is no tenderness. No rebound, guarding or rigidity. No organomegaly. No palpable masses. Good bowel sounds. Back: No CVA tenderness. Musculoskeletal: No edema. No cyanosis. No clubbing. Full range of motion in all extremities. Nocalf tenderness. Radial/pedal pulses are intact and 2+ bilaterally Skin: Skin is warm and dry. No petechiae. No purpura. Neurological: Alert and oriented to person, place, and time. Cranial nerves II -XII are grossly intact. Normal speech. Strength is grossly symmetric. No sensory deficits. Psychiatric: Good eye contact. Normal interaction, affect and behavior. <Evan Kamara - Last Filed: 12/09/17 22:55> - Vital Signs Last Vital Signs Temp Pulse Resp BP Pulse Ox 98.8 F 90 18 142/82 98 12/09/17 20:05 12/09/17 20:05 12/09/17 20:05 12/09/17 20:05 12/09/17 20:05 <Safia Morales - Last Filed: 12/10/17 00:53> ED Treatment Course - LABORATORY CBC & Chemistry Diagram: 12/09/17 20:19 12/09/17 20:19 - ADDITIONAL ORDERS Additional order review: Laboratory Results 12/09/17 12/09/17 12/09/17 20:46 20:46 20:19 Sodium 141 Potassium 4.3 Chloride 111 H Carbon Dioxide 21 Anion Gap 9 BUN 9 Creatinine 0.8 Creat Clearance w eGFR > 60 Random Glucose 112 H Calcium 8.6 Total Bilirubin 0.1 L AST 16 ALT 20 Alkaline Phosphatase 78 D Total Protein 7.2 Albumin 3.1 L Urine Color Dkyellow Urine Appearance Slcloudy Urine pH 5.0 Ur Specific [place] 1.035 Urine Protein 1+ H Urine Glucose (UA) Negative Urine Ketones Trace H Urine Blood 2+ H Urine Nitrite Negative Urine Bilirubin Negative Urine Urobilinogen 2.0 H Ur Leukocyte Esterase Trace Urine WBC (Auto) 5 Urine RBC (Auto) 3 Ur Epithelial Cells Few Urine Bacteria Rare Urine Mucus Rare Urine HCG, Qual Negative 12/09/17 20:19 RBC 3.97 MCV 73.4 L MCHC 32.1 RDW 18.5 H MPV 7.3 L Neutrophils % 65.1 Lymphocytes % 25.4 Monocytes % 5.8 Eosinophils % 2.2 Basophils % 1.5 <Evan Kamara - Last Filed: 12/09/17 22:55> - LABORATORY CBC & Chemistry Diagram: 12/09/17 20:19 12/09/17 20:19 - ADDITIONAL ORDERS Additional order review: Laboratory Results 12/09/17 12/09/17 12/09/17 20:46 20:46 20:19 WBC RBC Hgb Hct MCV MCH MCHC RDW Plt Count MPV Absolute Neuts (auto) Neutrophils % Lymphocytes % Monocytes % Eosinophils % Basophils % Nucleated RBC % Sodium 141 Potassium 4.3 Chloride 111 H Carbon Dioxide 21 Anion Gap 9 BUN 9 Creatinine 0.8 Creat Clearance w eGFR > 60 Random Glucose 112 H Calcium 8.6 Total Bilirubin 0.1 L AST 16 ALT 20 Alkaline Phosphatase 78 D Total Protein 7.2 Albumin 3.1 L Urine Color Dkyellow Urine Appearance Slcloudy Urine pH 5.0 Ur Specific [place] 1.035 Urine Protein 1+ H Urine Glucose (UA) Negative Urine Ketones Trace H Urine Blood 2+ H Urine Nitrite Negative Urine Bilirubin Negative Urine Urobilinogen 2.0 H Ur Leukocyte Esterase Trace Urine WBC (Auto) 5 Urine RBC (Auto) 3 Ur Epithelial Cells Few Urine Bacteria Rare Urine Mucus Rare Urine HCG, Qual Negative 12/09/17 20:19 WBC 10.4 H RBC 3.97 Hgb 9.4 L Hct 29.1 L MCV 73.4 L MCH 23.6 L MCHC 32.1 RDW 18.5 H Plt Count 371 D MPV 7.3 L Absolute Neuts (auto) 6.8 Neutrophils % 65.1 Lymphocytes % 25.4 Monocytes % 5.8 Eosinophils % 2.2 Basophils % 1.5 Nucleated RBC % 0 Sodium Potassium Chloride Carbon Dioxide Anion Gap BUN Creatinine Creat Clearance w eGFR Random Glucose Calcium Total Bilirubin AST ALT Alkaline Phosphatase Total Protein Albumin Urine Color Urine Appearance Urine pH Ur Specific [place] Urine Protein Urine Glucose (UA) Urine Ketones Urine Blood Urine Nitrite Urine Bilirubin Urine Urobilinogen Ur Leukocyte Esterase Urine WBC (Auto) Urine RBC (Auto) Ur Epithelial Cells Urine Bacteria Urine Mucus Urine HCG, Qual 12/09/17 20:19 RBC 3.97 MCV 73.4 L MCHC 32.1 RDW 18.5 H MPV 7.3 L Neutrophils % 65.1 Lymphocytes % 25.4 Monocytes % 5.8 Eosinophils % 2.2 Basophils % 1.5 <Safia Morales - Last Filed: 12/10/17 00:53> Medical Decision Making - Medical Decision Making 12/09/17 22:45 37yo female sent from Dr. Niño office for eval of intermittent fevers x 2 weeks and 3 weeks of abd pain/vaginal bleeding -c/o "passing tissue" and bloating sensation -sent for labs, tvus -pt c/o sob -no palpitations -no dysuria -c/o n/v/d -also c/o cramping in the legs -will send also for duplex u/s legs -will monitor and reassess 12/09/17 23:00 duplex ultrasound negative for DVT tv us without acute findings 12/09/17 23:[address] Niño re labs and imaging 12/10/17 00:48 ct without acute findings stable for d/c to home follows with GI in the [facility] and will discuss with Dr. Bunch tomorrow. pt underwent a pelvic exam with Dr. Bunch in the office - declines another <Safia Morales - Last Filed: 12/10/17 00:53> *DC/Admit/Observation/Transfer - Attestations Scribe Attestion: 12/09/17 22:56 Documentation prepared by Evan Kamara, acting as certified medical assistant for Safia Morales DO. <Evan Kamara - Last Filed: 12/09/17 22:55> - Discharge Dispostion Decision to Admit order: No - Attestations Physician Attestion: 12/10/17 00:53 I, Dr. Safia Morales DO, attest that this document has been prepared under my direction and personally reviewed by me in its entirety. I further attest, that it accurately reflects all work, treatment, procedures and medical decision -making performed by me. <Safia Morales - Last Filed: 12/10/17 00:53> Diagnosis at time of Disposition: Abnormal vaginal bleeding, Nausea & vomiting, Diarrhea - Discharge Dispostion Disposition: HOME Condition at time of disposition: Stable - Prescriptions Prescriptions: Acetaminophen Suppository [Tylenol .Suppository -] 650 mg NH Q6H PRN #20 supp.rect PRN Reason: Fever Mag Hydrox/Aluminum Hyd/Simeth [Maalox Maximum Strength Susp] 355 ml PO DAILY PRN #1 oral.susp PRN Reason: Pain Ondansetron [Zofran Odt -] 4 mg SL TID PRN #14 od.tablet PRN Reason: Nausea Ranitidine [Zantac -] 150 mg PO DAILY #14 tablet - Referrals Referrals: Janell Bunch DO [Primary Care Provider] - - Patient Instructions Printed Discharge Instructions: DI for Vaginal Bleeding Additional Instructions: Please take all medications as prescribed. Please return to the ED with any further concerns or complaints. Please make an appointment to see your SALES ACCOUNT REPRESENTATIVE and your building service worker for further evaluation. - Post Discharge Activity
[2017-12-09] MEDS ORDERED: SODIUM CHLORIDE 0.9% 1000 ML INFUS.BAG IV ONE (22:04)
[2017-12-09] MEDS ORDERED: ACETAMINOPHEN 1000 MG/100 ML VIAL (NON FORMULARY) IVPB ONE (22:04)
[2017-12-09] MEDS ORDERED: ONDANSETRON 4 MG/2 ML VIAL IVPUSH ONE (22:04)
[2017-12-09] MEDS ORDERED: ONDANSETRON 4 MG/2 ML VIAL ONE (22:55)
[2017-12-09] MEDS ORDERED: ACETAMINOPHEN INJECTION 100 ML IVPB ONE (22:55)
[2017-12-10] MEDS ORDERED: LIDOCAINE VISCOUS 2% ORAL/TOP 20 ML UNIT-DOSE CUP MM ONE (00:15)
[2017-12-10] MEDS ORDERED: morphine CARPU-JECT 2 MG/1 ML DISP.SYRIN IVPUSH ONE (00:15)
[2017-12-10] MEDS ORDERED: MAG HYDROX/AL HYDROX/SIMETH 30 ML UNIT-DOSE CUP PO ONE (00:15)
[2017-12-10] MEDS ORDERED: MORPHINE SULFATE 2 MG/ML VIAL ONE (00:28)
[2017-12-10] MEDS ORDERED: LIDOCAINE VISCOUS 2% ORAL/TOP 20 ML UNIT-DOSE CUP ONE (00:28)
[2017-12-10] MEDS ORDERED: MAG HYDROX/AL HYDROX/SIMETH 30 ML UNIT-DOSE CUP ONE (00:28)
== END 2017-12-10 01:51 | disposition home or self-care (01) ==
LOC: JER 20:04
PROC: 3E0337Z Introduction of Electrolytic and Water Balance Substance into Peripheral Vein, Percutaneous Approach (ICD-10-PCS; principal; 2017-12-09)
PROC: 3E033NZ Introduction of Analgesics, Hypnotics, Sedatives into Peripheral Vein, Percutaneous Approach (ICD-10-PCS; 2017-12-09)
DX: N93.9 Abnormal uterine and vaginal bleeding, unspecified (principal); R11.2 Nausea with vomiting, unspecified; R19.7 Diarrhea, unspecified
CPT/HCPCS: 36415; 71046-TC-FY; 74177-TC; 76830-TC; 80053; 81003; 81015; 84703; 85025; 87086; 93970-TC; 99283-25; J0131; J7030

== ENCOUNTER 2017-12-16 05:13 | Day surgery (SDC) | payer OTHER ==
[2017-12-15 10:13] VITALS: BMI 31.6
[2017-12-16] MEDS ORDERED: ACETAMINOPHEN 325 MG TABLET (FP) PO PRN (12:00)
[2017-12-16] MEDS ORDERED: LACTATED RINGERS SOLUTION 1,000 ML IV SCH (12:00)
--- NOTE | 2017-12-16 12:00 | HP ---
History & Physical Update - History History: No Change - Physical Physical: No Change - Assessment Assessment: No Change - Plan Plan: No Change (NO change, agree with H&P from 12/15 - for hysterocopy D&C)
[2017-12-16] MEDS ORDERED: PROPOFOL 20 ML ONE ×3 (12:23→12:35)
[2017-12-16] MEDS ORDERED: ceFAZolin SODIUM 1 GM VIAL IVPB ONE (12:30)
[2017-12-16] MEDS ORDERED: ceFAZolin SODIUM 1 GM VIAL ONE (12:32)
[2017-12-16] MEDS ORDERED: KETOROLAC TROMETHAMINE 30 MG/1 ML VIAL ONE (12:47)
[2017-12-16] MEDS ORDERED: ACETAMINOPHEN INJECTION 100 ML IVPB ONE (12:56)
[2017-12-16] MEDS ORDERED: ONDANSETRON 4 MG/2 ML VIAL IVPUSH PRN (13:00)
[2017-12-16] MEDS ORDERED: oxyCODONE HCL 5 MG TABLET PO PRN ×2 (13:00→13:38)
--- NOTE | 2017-12-16 13:06 | OP ---
Operative Note - Note: Operative Date: 12/16/17 Pre-Operative Diagnosis: AUB Operation: hysteroscopy, D&C Findings: normal intrauterine anatomy no fibroids/polyps b/l tubal ostea noted Post-Operative Diagnosis: Same as Pre-op Surgeon: Janell Bunch Assistant Credit Manager: Ly Rodríguez Anesthesia: MAC Specimens Removed: endometrial curettings Estimated Blood Loss (mls): 5 Operative Report Dictated: Yes
[2017-12-16] MEDS ORDERED: ACETAMINOPHEN 1000 MG/100 ML VIAL (NON FORMULARY) IVPB ONE (13:45)
[2017-12-16 15:31] VITALS: BP 117/64; PULSE 81; TEMP 97.9
--- NOTE | 2017-12-16 20:55 | OP ---
DATE OF OPERATION: 12/16/2017 PREOPERATIVE DIAGNOSIS: Abnormal uterine bleeding. POSTOPERATIVE DIAGNOSIS: Abnormal uterine bleeding. PROCEDURE: Diagnostic hysteroscopy, suction dilation and curettage. SURGEON: Janell Bunch D.O. ANESTHESIOLOGIST: Ly Rodríguez D.O. ANESTHESIA: MAC. COMPLICATIONS: None. SPECIMENS REMOVED: Endometrial curettings. DISPOSITION: Stable to PACU. COUNTS: Sponge and instrument counts were reported to be correct at the end of the case. BRIEF HISTORY AND PROCEDURE: Patient is a 37-year-old female who has been seen in the office with complaints of irregular bleeding, and after workup was found to have no obvious sources of bleeding, and elected to undergo a diagnostic hysteroscopy and dilation and curettage. DESCRIPTION OF PROCEDURE: Patient was consented for the procedure in the office, and she was admitted to [facility] on December 16, 2017, for an outpatient procedure. She was taken to the operating room and given MAC anesthesia by Dr. Ly Rodríguez and placed in the dorsal lithotomy position. A hard timeout was performed. A speculum was placed in the vagina, and a tenaculum was placed on the anterior lip of the cervix. The cervix was easily dilated to accommodate a diagnostic hysteroscope, which was advanced to the fundus of the uterus. Bilateral tubal ostia were noted. No intracavitary tissue, fibroids, polyps, or abnormalities were noted. At this point a sharp curettage and all 4 hernandez of the uterus was completed, and suction dilation and curettage was performed. Instruments were then all removed from the uterine cavity. Minimal bleeding was noted from cervical os. Tenaculum sites were hemostatic. Sponge and instrument counts were reported to be correct. Patient tolerated procedure well, was in recovery in stable condition in the PACU after the procedure. JANELL BUNCH DO /[id number]
--- NOTE | 2017-12-17 10:18 | PATH ---
Surgical Pathology Report Patient Name: CHRISTIANO MUÑIZ [facility]. Rec. #: [id number] /Age/Gender: 1980 (Age: 37) / F Account: [id number] Location: [facility] Taken: 12/16/2017 Received: 12/16/2017 Reported: 12/17/2017 Physicians: Janell Bunch M.D. Specimen(s) Received ENDOMETRIAL CURETTINGS Clinical History Abnormal uterine bleeding Final Diagnosis ENDOMETRIAL CURETTINGS, DILATION AND CURETTAGE: FRAGMENTS OF ENDOMETRIAL POLYP, LOWER UTERINE SEGMENT, BENIGN CERVICAL TISSUE WITH FOCAL SQUAMOUS METAPLASIA ADMIXED WITH MUCUS. Electronically Signed Makenna Gatica M.D. Gross Description Received in formalin labeled "endometrial curettings," is a 3.2 x 2.5 x 0.3 cm aggregate of estrada red soft tissue fragments admixed with mucus. The formalin is filtered and the specimen is entirely submitted in 2 cassettes. /12/16/2017 saudi/12/16/2017
== END 2017-12-16 15:05 | disposition home or self-care (01) ==
LOC: JASU-SURG 05:13
PROVIDERS: ATTEND Obstetrics & Gynecology
PROC: 0UDB7ZX Extraction of Endometrium, Via Natural or Artificial Opening, Diagnostic (ICD-10-PCS; principal; 2017-12-16 12:00)
PROC: 0UJD8ZZ Inspection of Uterus and Cervix, Via Natural or Artificial Opening Endoscopic (ICD-10-PCS; 2017-12-16 12:00)
DX: N93.9 Abnormal uterine and vaginal bleeding, unspecified (principal)
CPT/HCPCS: 88305-TC; 94760; J0131

== ENCOUNTER 2018-01-11 17:15 | Emergency (ER) | payer OTHER ==
--- NOTE | 2018-01-11 17:22 | PDOC ---
Rapid Medical Evaluation Chief Complaint: Syncope/Near Syncope Time Seen by Provider: 01/11/18 17:16 Medical Evaluation: Allergies Allergy/AdvReac Type Severity Reaction Status Date / Time hydrochlorothiazide Allergy Intermediate Rash Verified 12/15/17 10:21 NSAIDS (Non-Steroidal Allergy Intermediate Rash, Verified 12/15/17 10:21 Anti-Inflamma "bleeding" gabapentin Allergy "itchy,blee Verified 12/15/17 10:21 ding" 01/11/18 17:20 I have performed a brief in person evaluation of this patient. The patient presents with a chief complaint of: "dizziness" and I think I have "MRSA" again. Pertinent PE: Skin: Unable to evaluate as patient has pants on at triage. Lungs: Clear Heart: RRR Abd: Nontender MS: Moves all extremities without difficulty. Neuro: Alert and oriented Psych: Appropriate affect The patient will proceed to: pt will go to the main ED for further evaluation. Discharge Disposition - Diagnosis Syncope Qualifiers: Syncope type: unspecified Qualified Code(s): R55 - Syncope and collapse - Referrals - Patient Instructions - Post Discharge Activity
[2018-01-11 17:24] VITALS: BMI 31.6
[2018-01-11] MEDS ORDERED: SODIUM CHLORIDE 0.9% 1000 ML INFUS.BAG IV STA (21:17)
[2018-01-11] MEDS ORDERED: ACETAMINOPHEN 1000 MG/100 ML VIAL (NON FORMULARY) IVPB ONE (21:20)
--- NOTE | 2018-01-11 21:27 | PDOC ---
History of Present Illness - General Chief Complaint: Syncope/Near Syncope Stated Complaint: Blood Pressure Problem Time Seen by Provider: 01/11/18 17:16 - History of Present Illness Initial Comments: 37 year old female, with a significant past medical history of HTN, recurrent kidney stones, arthritis, thyroid CA, who presents to the ED with 3 days of subjective fevers, headaches, neck pain and night sweats. She describes shortness of breath because of the pain as well. She denies nausea, vomiting, diarrhea or constipation. She has these mini pimples on her buttocks which she states she believes are MRSA bc her daughter was recently diagnosed with MRSA. She currently has no fever here in the ED, shortness of breath or chest pain. PCP: Ralf Higginbotham AllergiesL HCTZ, NSAIDs, gabapentin. Social Hx: 4 cigarettes a day. Denies using alchol or illicit drugs. Past History - Past Medical History Allergies/Adverse Reactions: Allergies Allergy/AdvReac Type Severity Reaction Status Date / Time hydrochlorothiazide Allergy Intermediate Rash Verified 01/11/18 17:20 NSAIDS (Non-Steroidal Allergy Intermediate Rash, Verified 01/11/18 17:20 Anti-Inflamma "bleeding" gabapentin Allergy "itchy,blee Verified 01/11/18 17:20 ding" Home Medications: Ambulatory Orders Valacyclovir HCl [Valtrex -] 1,000 mg PO DAILY 03/13/15 Levothyroxine [Synthroid -] 175 mcg PO DAILY 07/07/17 Omeprazole 20 mg PO DAILY 12/10/17 hydrOXYzine HCL [Atarax -] 25 mg PO BID 12/10/17 Cholecalciferol (Vitamin D3) [Vitamin D3 -] 400 unit PO DAILY 12/15/17 Famotidine 20 mg PO DAILY 12/15/17 Folic Acid 1 mg PO DAILY 12/15/17 Mag Hydrox/Al Hydrox/Simeth [MAALOX *SUSPENSION* -] 3 tsp PO PRN PRN 12/16/17 Anemia: Yes Asthma: No Cancer: Yes (thyroid 2001) Cardiac Disorders: No CVA: No COPD: No CHF: No DVT: No Dementia: No Diabetes: No GI Disorders: Yes ("heartburn") Disorders: Yes (recurrent stones) HTN: Yes Hypercholesterolemia: No Kidney Stones: No (M.SPONGE KIDNEY) Liver Disease: No Psychiatric Problems: Yes (depression, fibromyalgias, arthritis) Seizures: No Thyroid Disease: Yes (ca) Other medical history: RA. FIBROMYALGIA - Surgical History Abdominal Surgery: Yes (hernia repair, GASTRIC SLEEVE) Cholecystectomy: Yes GI Surgery: Yes (sleeve) - Suicide/Smoking/Psychosocial Hx Smoking History: Current every day smoker Have you smoked in the past 12 months: Yes Number of Cigarettes Smoked Daily: 4 Information on smoking cessation initiated: Yes 'Breaking Loose' booklet given: 01/11/18 Hx Alcohol Use: No Drug/Substance Use Hx: No Substance Use Type: Alcohol Hx Substance Use Treatment: No Review of Systems - Review of Systems Comments:: CONSTITUTIONAL: Present: fever, chills, diaphoresis, generalized weakness, malaise Absent: loss of appetite HEENT: Absent: rhinorrhea, nasal congestion, throat pain, throat swelling, difficulty swallowing, mouth swelling, ear pain, eye pain, visual Changes CARDIOVASCULAR: Present: palpitations. Absent: chest pain, syncope, irregular heart rate, lightheadedness, peripheral edema RESPIRATORY: Present: shortness of breath Absent: cough, dyspnea with exertion, orthopnea, wheezing, stridor, hemoptysis GASTROINTESTINAL: Absent: abdominal pain, abdominal distension, nausea, vomiting, diarrhea, constipation, melena, hematochezia GENITOURINARY: Absent: dysuria, frequency, urgency, hesitancy, hematuria, flank pain, genital pain MUSCULOSKELETAL: Absent: myalgia, arthralgia, joint swelling SKIN: Present: rash Absent: itching, pallor HEMATOLOGIC/IMMUNOLOGIC: Absent: easy bleeding, easy bruising, lymphadenopathy, frequent infections ENDOCRINE: Absent: unexplained weight gain, unexplained weight loss, heat intolerance, cold intolerance NEUROLOGIC: Present: headache Absent: focal weakness or paresthesias, dizziness, unsteady gait, seizure, mental status changes, bladder or bowel incontinence PSYCHIATRIC: Absent: anxiety, depression, suicidal or homicidal ideation, hallucinations. *Physical Exam - Vital Signs Last Vital Signs Temp Pulse Resp BP Pulse Ox 98.6 F 100 H 18 140/90 100 01/11/18 17:21 01/11/18 17:21 01/11/18 17:21 01/11/18 17:21 01/11/18 17:21 - Physical Exam Comments: GENERAL: Well developed, well nourished. Awake and alert. No acute distress. HEENT: Normocephalic, atraumatic. PERRLA, EOMI. No conjunctival pallor. Sclera are non- icteric. Moist mucous membranes. Oropharynx is clear. NECK: There is increased tenderness on neck extension. Supple. Full ROM. No JVD. No lymphadenopathy. CARDIOVASCULAR: Regular rate and rhythm. No murmurs, rubs, or gallops. Distal pulses are 2+ and symmetric. PULMONARY: No evidence of respiratory distress. Lungs clear to auscultation bilaterally. No wheezing, rales or rhonchi. ABDOMINAL: Soft. Non-tender. Non-distended. No rebound or guarding. No organomegaly. Normoactive bowel sounds. MUSCULOSKELETAL Normal range of motion at all joints. No bony deformities or tenderness. No CVA tenderness. EXTREMITIES: No cyanosis. No clubbing. No edema. No calf tenderness. SKIN: Warm and dry. Normal capillary refill. No rashes. No jaundice. NEUROLOGICAL: Alert, awake, appropriate. Cranial nerves 2-12 intact. No deficits to light touch in face, upper extremities and lower extremities. No motor deficits in the in face, upper extremities and lower extremities. Normal speech. Gait is normal without ataxia. PSYCHIATRIC: Cooperative. Good eye contact. Appropriate mood and affect. ED Treatment Course - LABORATORY CBC & Chemistry Diagram: 01/11/18 21:51 01/11/18 21:51 - RADIOLOGY Radiology Studies Ordered: Category Date Time Status CHEST PA & LAT [RAD] Stat Radiology 01/11/18 21:20 Ordered Medical Decision Making - Medical Decision Making 37 year old female, with a significant past medical history of HTN, recurrent kidney stones, arthritis, thyroid CA, who presents to the ED with 3 days of subjective fevers, headaches, neck pain and night sweats. Rectal Temp at bedside - 99.2 Patient took 1000 mg of tylenol at 2 pm and ibuprofen at 5 pm. DD includes but not limited to: infection, viral vs bacterial meningitis, chronic pain, PNA, myxedema, fibromyalgia Plan: Labs, Urine, EKG, CXR, rectal temp, acetaminophen, re-assess. Low suspicion for bacterial meningitis given well appearing patient, minimal neck pain, no rigidity. Labs and urine unremarkable. Patient agrees the best move going forward is scheduling an appointment with a house painting instructor. Will DC pending CXR read. *DC/Admit/Observation/Transfer Diagnosis at time of Disposition: Fibromyalgia, Viral illness - Discharge Dispostion Disposition: HOME Condition at time of disposition: Stable Decision to Admit order: No - Referrals Referrals: Oliver Higginbotham MD [Primary Care Provider] - - Patient Instructions Printed Discharge Instructions: When a Loved One Has Chronic Fatigue Syndrome or Fibromyalgia, Fibromyalgia (Alternative Therapy), DI for Methicillin- Resistant Staph Infection (MRSA) Additional Instructions: You came into the ER with a significant amount of pain. We gave you IV hydration and tylenol but it did not seem to help much. We believe your pain is a result of fibromyalgia. We want to stress how important it is for you to schedule an appointment with a pain management doctor to get your pain under control. Come back to the ER if you develop a high fever, faint, have extreme chest pain, or any other new or worsening concerns. Please make sure to schedule a follow up appointment with your primary care doctor in the next 3 to 5 days to make sure you are getting and feeling better. Print Language: YEMENI - Post Discharge Activity
[2018-01-11 22:03] LABS: BASO % 1.3 % (0-2.0); EOS % 4.5 % (0-4.5); HEMATOCRIT 27.9 % (32.4-45.2); HEMOGLOBIN 8.7 GM/dL (10.7-15.3); LYMPH % 29.6 % (8-40); MCH 23.1 pg (25.7-33.7); MCHC 31.3 g/dl (32.0-36.0); MEAN CELL VOLUME 73.9 fl (80-96); MEAN PLT VOLUME 7.2 fl (7.5-11.1); MONO % 8.5 % (3.8-10.2); NEUT % 56.1 % (42.8-82.8); PLATELET COUNT 425 K/MM3 (134-434); RBC 3.78 M/mm3 (3.60-5.2); RDW 19.1 % (11.6-15.6); WHITE BLOOD COUNT 8.9 K/mm3 (4.0-10.0)
[2018-01-11] MEDS ORDERED: ACETAMINOPHEN INJECTION 100 ML IVPB ONE (22:07)
[2018-01-11 22:20] LABS: INR 0.85 (0.83-1.09)
[2018-01-11 22:22] LABS: URINE APPEARANCE CLEAR; URINE BILIRUBIN NEGATIVE (<2.0 mg/dL); URINE COLOR LTYELLOW; URINE GLUCOSE (UA) NEGATIVE (NEGATIVE); URINE KETONE NEGATIVE (NEGATIVE); URINE LEUK ESTERASE NEGATIVE (NEGATIVE); URINE NITRITE NEGATIVE (NEGATIVE); URINE PROTEIN NEGATIVE (NEGATIVE); URINE UROBILINOGEN NEGATIVE mg/dL (0.2-1.0)
[2018-01-11 22:23] LABS: ACTIVATED PTT 22.4 SECONDS (25.2-36.5)
--- NOTE | 2018-01-11 22:24 | PDOC ---
Attending Attestation - HPI HPI: 01/11/18 22:56 The patient is a 37 year old female, with a significant past medical history of recurrent renal stones, HTN, medullary sponge kidney, UTI's, hypothyroid, fibromyalgia, congenital kidney disease, psoriasis, RA, thyroid CA, who presents to the emergency department with headache, neck pain, fevers, chills and diaphoresis today. The patient denies chest pain, shortness of breath, headache and dizziness. The patient denies fever, chills, nausea, vomit, diarrhea and constipation. The patient denies dysuria, frequency, urgency and hematuria. Allergies: NSAIDS, hydrochlorothiazide Past surgical history: Hernia repair, cholecystectomy, GI sleeve Social History: Cigarette use (4 daily). No drug or alcohol use noted. - Medical Decision Making 01/11/18 22:57 Documentation prepared by Macie Renee, acting as medical historian for Antionette Fuentes MD <Macie Renee - Last Filed: 01/11/18 22:56> - Resident Resident Name: Alen Bermudez - ED Attending Attestation I have performed the following: I have examined & evaluated the patient, The case was reviewed & discussed with the resident, I agree w/resident's findings & plan, Exceptions are as noted - HPI HPI: 01/11/18 22:22 37 yo female presents with multiple complaints including generalized muscle pain ,fever,chills ,rash on feet(has chronic psoriasis plaques) - Physicial Exam PE: 01/11/18 22:26 wnwd 37 yo female who appears well and is eating head ncat eyes eomi neck no nuchal rigidity,no jvd lungs cta b/l cvs [id number] abd protuberant extremities - no deformity ,she has chronic plaques on her feet due to psoriasis neuro axox3,ambulatory,motor strength 5/5 b/l skin warm and dry psych appropriate - Medical Decision Making 01/11/18 23:12 labs reviewed- unremarkable preg negative UA negative 01/12/18 16:37 pt has chronic pain e rheumatoid arthritis and fibromyalgia -she has been talkative,eating dinner,ambulating in the ER with no evidence of infection -no nuchal rigidity, no gross focal deficits,o cellulitis pt referred back to her specialists at [facility] <Antionette Fuentes - Last Filed: 01/12/18 16:39>
[2018-01-11 22:27] LABS: ALBUMIN 3.4 g/dl (3.4-5.0); ALK PHOS 81 U/L (45-117); ANION GAP 5 MMOL/L (8-16); BILIRUBIN,TOTAL 0.1 mg/dL (0.2-1); BLOOD UREA NITROGEN 10 mg/dL (7-18); CALCIUM 8.9 mg/dL (8.5-10.1); CHLORIDE 113 mmol/L (98-107); CO2 24 mmol/L (21-32); CREATININE 0.8 mg/dL (0.55-1.3); GLUCOSE,RANDOM 93 mg/dL (74-106); POTASSIUM 4.1 mmol/L (3.5-5.1); SGOT/AST 11 U/L (15-37); SGPT/ALT 14 U/L (13-61); SODIUM 142 mmol/L (136-145); TOT PROT 7.6 g/dl (6.4-8.2)
[2018-01-11] MEDS ORDERED: morphine CARPU-JECT 4 MG/1 ML DISP.SYRIN IVPUSH ONE (22:58)
[2018-01-11] MEDS ORDERED: morphine SULFATE 4 MG/ML VIAL ONE (23:09)
[2018-01-11] MEDS ORDERED: ONDANSETRON 4 MG/2 ML VIAL IVPUSH ONE (23:46)
[2018-01-11] MEDS ORDERED: diphenhydrAMINE HCL 25 MG CAPSULE (FP) PO ONE (23:47)
[2018-01-12] MEDS ORDERED: ONDANSETRON 4 MG/2 ML VIAL ONE (00:30)
[2018-01-12] MEDS ORDERED: diphenhydrAMINE HCL 25 MG CAPSULE (FP) PO ONE (00:34)
[2018-01-12 00:53] VITALS: BP 131/71; PULSE 88; TEMP 99
--- NOTE | 2018-01-12 12:52 | EKG ---
Test Reason : Blood Pressure : / mmHG Vent. Rate : 093 BPM Atrial Rate : 093 BPM P-R Int : 138 ms QRS Dur : 094 ms QT Int : 368 ms P-R-T Axes : 063 076 051 degrees QTc Int : 457 ms NORMAL SINUS RHYTHM NORMAL ECG WHEN COMPARED WITH ECG OF 06-OCT-2017 18:14, NONSPECIFIC T WAVE ABNORMALITY NO LONGER EVIDENT IN ANTERIOR LEADS Confirmed by MD TARUN, CIARAN ([id number]) on 01/12/2018 12:52:36 PM Referred By: Confirmed By:CIARAN MCNEIL MD
== END 2018-01-12 00:53 | disposition home or self-care (01) ==
LOC: JER 17:15
PROC: 3E033NZ Introduction of Analgesics, Hypnotics, Sedatives into Peripheral Vein, Percutaneous Approach (ICD-10-PCS; principal; 2018-01-11)
PROC: 3E033NZ Introduction of Analgesics, Hypnotics, Sedatives into Peripheral Vein, Percutaneous Approach (ICD-10-PCS; 2018-01-11)
PROC: 3E033GC Introduction of Other Therapeutic Substance into Peripheral Vein, Percutaneous Approach (ICD-10-PCS; 2018-01-11)
DX: B34.9 Viral infection, unspecified (principal); I10 Essential (primary) hypertension; M10.9 Gout, unspecified; M79.7 Fibromyalgia; Q61.5 Medullary cystic kidney; F32.9 Major depressive disorder, single episode, unspecified; Z85.850 Personal history of malignant neoplasm of thyroid
CPT/HCPCS: 36415; 71046-TC-FY; 80053; 80307; 81003; 83605; 84443; 84484; 84703; 85025; 85610; 85730; 87040; 93005; 93010; 96374; 96375; 99283-25; J0131; J7030

== ENCOUNTER 2018-02-09 00:44 | Emergency (ER) | payer OTHER ==
[2018-02-09 02:44] VITALS: TEMP 98; BMI 31.8
--- NOTE | 2018-02-09 03:19 | PDOC ---
History of Present Illness - General History Source: Patient Exam Limitations: No Limitations - History of Present Illness Initial Comments: 02/09/18 03:29 Mr. Monge is a 37-year-old female with a history of rheumatoid arthritis, fibromyalgia, panic psoriasis, hypertension, history of thyroid cancer in 2000 status post total thyroidectomy. She presents emergency department with a complaint of neck pain. Patient states that approximately 2 weeks ago she noted enlarged/enlarged lymph nodes in the right posterior neck. At that time they were not painful. These lymph nodes progressively began to increase in size and become more painful. She was seen by her primary care physician today who was reportedly concerned about these lymph nodes. She is s/p trigger point injections today Pt states that prior to 2 weeks ago, she was have transient lymph node enlargement but this would rapidly resolve She is concerned about these nodes because they have not resolved, but rather are getting worse No fevers or chills No recent URI symptoms, or pharyngeal infection No dental infection/pain No ill contacts PMH: RA, Plaque Psoriasis, HTN, Thyroid Ca s/p total thyroidectomy PSH: Total thyroidectomy Med: Synthroid ALL: NSAIDS --> urticaria, HCTZ Social: Denies tobacco, drug use ROS: GENERAL/CONSTITUTIONAL: No: fever, chills HEAD, EYES, EARS, NOSE AND THROAT: No: change in vision, ear pain, discharge, sore throat, throat swelling. CARDIOVASCULAR: No: chest pain, lightheadedness, palpitations, syncope RESPIRATORY: No: cough, shortness of breath GASTROINTESTINAL: No: nausea, vomiting, diarrhea, abdominal pain GENITOURINARY: No: dysuria, hematuria MUSCULOSKELETAL: Yes: Neck pain No: back pain, joint pain, muscle swelling or pain SKIN: No: lesions, pallor, rash or easy bruising. NEUROLOGIC: No: headache, vertigo, paresthesias, weakness ENDOCRINE: No: unexplained weight gain or loss HEMATOLOGIC/LYMPHATIC: No: anemia, easy bleeding, swelling nodes. PE: GENERAL: The patient is in no acute distress. HEAD: Normal EYES: PERRLA, EOMI, sclera anicteric, conjunctiva clear. ENT: Ears normal, nares patent, oropharynx clear without exudates. Moist mucous membranes. NECK: Normal range of motion, supple, painful lymphadenopathy (posterior cervical chain, posterior auricular) LUNGS: Breath sounds equal, clear to auscultation bilaterally. No wheezes, and no crackles. HEART:Regular rate and rhythm, normal S1 and S2 without murmur, rub or gallop. ABDOMEN: Soft, nontender, normoactive bowel sounds. No guarding, no rebound. No masses palpable. EXTREMITIES: Normal range of motion NEUROLOGICAL: Cranial nerves II through XII grossly intact. Normal speech. No focal neurological deficits. MUSCULOSKELETAL: Back non-tender to palpation SKIN: Warm, Dry, normal turgor, no rashes or lesions noted. <Isha Perdomo - Last Filed: 02/09/18 08:25> <Basil Nolan - Last Filed: 02/09/18 08:51> - General Chief Complaint: Headache Stated Complaint: HEAD/NECK PAIN Time Seen by Provider: 02/09/18 03:19 Past History - Past Medical History Anemia: Yes Asthma: No Cancer: Yes (thyroid 2002) Cardiac Disorders: No CVA: No COPD: No CHF: No DVT: No Dementia: No Diabetes: No GI Disorders: Yes ("heartburn") Disorders: Yes (recurrent stones) HTN: Yes Hypercholesterolemia: No Kidney Stones: No (M.SPONGE KIDNEY) Liver Disease: No Psychiatric Problems: Yes (depression, fibromyalgias, arthritis) Seizures: No Thyroid Disease: Yes (ca) - Surgical History Abdominal Surgery: Yes (hernia repair, GASTRIC SLEEVE) Cholecystectomy: Yes GI Surgery: Yes (sleeve) - Suicide/Smoking/Psychosocial Hx Smoking History: Never smoked Have you smoked in the past 12 months: No Number of Cigarettes Smoked Daily: 4 Information on smoking cessation initiated: No 'Breaking Loose' booklet given: 01/11/18 Hx Alcohol Use: No Drug/Substance Use Hx: No Substance Use Type: Alcohol Hx Substance Use Treatment: No <Isha Perdomo - Last Filed: 02/09/18 08:25> <Basil Nolan - Last Filed: 02/09/18 08:51> - Past Medical History Allergies/Adverse Reactions: Allergies Allergy/AdvReac Type Severity Reaction Status Date / Time amlodipine [From Exforge] Allergy Intermediate Rash Verified 02/09/18 04:50 hydrochlorothiazide Allergy Intermediate Rash Verified 02/09/18 02:44 NSAIDS (Non-Steroidal Allergy Intermediate Rash, Verified 02/09/18 02:44 Anti-Inflamma "bleeding" valsartan [From Exforge] Allergy Intermediate Rash Verified 02/09/18 04:50 gabapentin Allergy "itchy,blee Verified 02/09/18 02:44 ding" Home Medications: Ambulatory Orders Valacyclovir HCl [Valtrex -] 1,000 mg PO DAILY 03/13/15 Levothyroxine [Synthroid -] 175 mcg PO DAILY 07/07/17 Omeprazole 20 mg PO DAILY 12/10/17 hydrOXYzine HCL [Atarax -] 25 mg PO BID 12/10/17 Cholecalciferol (Vitamin D3) [Vitamin D -] 400 unit PO DAILY 12/15/17 Famotidine 20 mg PO DAILY 12/15/17 Folic Acid 1 mg PO DAILY 12/15/17 Mag Hydrox/Al Hydrox/Simeth [MAALOX *SUSPENSION* -] 3 tsp PO PRN PRN 12/16/17 Mag Hydrox/Al Hydrox/Simeth [Mylanta Suspension -] 30 ml PO Q6H #1 bottle Tramadol HCl 50 mg PO BID PRN #10 tablet MDD 2 tabs 02/09/18 *Physical Exam - Vital Signs Last Vital Signs Temp Pulse Resp BP Pulse Ox 98 F 87 18 151/95 100 02/09/18 00:45 02/09/18 00:45 02/09/18 00:45 02/09/18 00:45 02/09/18 00:45 <Isha Perdomo - Last Filed: 02/09/18 08:25> - Vital Signs Last Vital Signs Temp Pulse Resp BP Pulse Ox 98 F 99 H 18 145/96 99 02/09/18 00:45 02/09/18 08:00 02/09/18 08:00 02/09/18 08:00 02/09/18 08:00 <Basil Nolan - Last Filed: 02/09/18 08:51> ED Treatment Course - LABORATORY CBC & Chemistry Diagram: 02/09/18 04:28 02/09/18 04:28 <Isha Perdomo - Last Filed: 02/09/18 08:25> - LABORATORY CBC & Chemistry Diagram: 02/09/18 04:28 02/09/18 04:28 - ADDITIONAL ORDERS Additional order review: Laboratory Results 02/09/18 02/09/18 04:28 04:28 Sodium 139 Potassium 4.1 Chloride 106 Carbon Dioxide 27 Anion Gap 6 L BUN 12 Creatinine 0.9 Creat Clearance w eGFR > 60 Random Glucose 91 Calcium 8.6 Total Bilirubin 0.1 L AST 17 ALT 14 Alkaline Phosphatase 80 Total Protein 7.5 Albumin 3.4 TSH 8.33 H Serum , Qual Negative 02/09/18 04:28 RBC 3.89 MCV 73.0 L MCHC 32.0 RDW 18.5 H MPV 7.3 L Neutrophils % 50.5 Lymphocytes % 34.9 Monocytes % 9.4 Eosinophils % 4.7 H Basophils % 0.5 - Medications Given in the ED: ED Medications Discontinued Medications Generic Name Dose Route Start Last Admin Trade Name Raheme PRN Reason Stop Dose Admin Morphine Sulfate 4 mg 02/09/18 03:20 02/09/18 05:09 Morphine Injection - IVPUSH 02/09/18 03:21 4 mg ONCE ONE Administration <Basil Nolan - Last Filed: 02/09/18 08:51> Medical Decision Making - Medical Decision Making 02/09/18 03:36 Pt presents with painful cervical lymphadenopathy It is unclear to me the cause of this Reactive nodes vs. cancer Will do: Labs CT soft tissue neck with IV contrast Pain medications Re assess 02/09/18 06:35 Laboratory Tests 02/09/18 02/09/18 02/09/18 04:28 04:28 04:28 WBC 9.0 Hgb 9.1 L Hct 28.4 L Plt Count 316 D BUN 12 Creatinine 0.9 TSH 8.33 H Serum , Qual Negative CT pending 02/09/18 08:08 CT demonstrates prominent lymph nodes in subcutaneous tissues, non specidic Nodes will need further investigation Will plan to discharge to home Will give pain meds Pt will need to follow up with ENT for biposy Clinical Impression: lymphadenopathy, initial presentation <Isha Perdomo - Last Filed: 02/09/18 08:25> *DC/Admit/Observation/Transfer - Discharge Dispostion Decision to Admit order: No <Isha Perdomo - Last Filed: 02/09/18 08:25> <Basil Nolan - Last Filed: 02/09/18 08:51> Diagnosis at time of Disposition: Lymphadenopathy of head and neck - Discharge Dispostion Disposition: HOME Condition at time of disposition: Stable - Prescriptions Prescriptions: Mag Hydrox/Al Hydrox/Simeth [Mylanta Suspension -] 30 ml PO Q6H #1 bottle Tramadol HCl 50 mg PO BID PRN #10 tablet MDD 2 tabs PRN Reason: Pain - Referrals Referrals: Ralf Higginbotham RES [Resident] - Piero Hobbs MD [Staff Physician] - Son Garvey MD [Staff Physician] - - Patient Instructions Printed Discharge Instructions: Lymph Node Biopsy, DI for Lymph Node Biopsy Additional Instructions: Ms Monge Thank you for coming in to the ER today Please review your CT findings It will be important for you to follow up with ENT for re assessment and biopsy Please take medications as prescribed Return to the ER for any other concerns or complaints - Post Discharge Activity
[2018-02-09] MEDS ORDERED: morphine CARPU-JECT 4 MG/1 ML DISP.SYRIN IVPUSH ONE ×2 (03:20→08:08)
[2018-02-09] MEDS ORDERED: SODIUM CHLORIDE 1,000 ML IV STA (03:20)
[2018-02-09 04:40] LABS: BASO % 0.5 % (0-2.0); EOS % 4.7 % (0-4.5); HEMATOCRIT 28.4 % (32.4-45.2); HEMOGLOBIN 9.1 GM/dL (10.7-15.3); LYMPH % 34.9 % (8-40); MCH 23.4 pg (25.7-33.7); MEAN PLT VOLUME 7.3 fl (7.5-11.1); MONO % 9.4 % (3.8-10.2); NEUT % 50.5 % (42.8-82.8); PLATELET COUNT 316 K/MM3 (134-434); RBC 3.89 M/mm3 (3.60-5.2); RDW 18.5 % (11.6-15.6)
[2018-02-09] MEDS ORDERED: MORPHINE SULFATE 2 MG/ML VIAL ONE ×2 (04:59→08:16)
[2018-02-09 05:05] LABS: ALBUMIN 3.4 g/dl (3.4-5.0); ALK PHOS 80 U/L (45-117); ANION GAP 6 MMOL/L (8-16); BILIRUBIN,TOTAL 0.1 mg/dL (0.2-1); BLOOD UREA NITROGEN 12 mg/dL (7-18); CALCIUM 8.6 mg/dL (8.5-10.1); CHLORIDE 106 mmol/L (98-107); CO2 27 mmol/L (21-32); CREATININE 0.9 mg/dL (0.55-1.3); GLUCOSE,RANDOM 91 mg/dL (74-106); POTASSIUM 4.1 mmol/L (3.5-5.1); SGOT/AST 17 U/L (15-37); SGPT/ALT 14 U/L (13-61); SODIUM 139 mmol/L (136-145); TOT PROT 7.5 g/dl (6.4-8.2)
[2018-02-09 08:31] VITALS: BP 145/96; PULSE 99
== END 2018-02-09 08:49 | disposition home or self-care (01) ==
LOC: JER 00:44
PROC: 3E0337Z Introduction of Electrolytic and Water Balance Substance into Peripheral Vein, Percutaneous Approach (ICD-10-PCS; principal; 2018-02-09)
PROC: 3E033NZ Introduction of Analgesics, Hypnotics, Sedatives into Peripheral Vein, Percutaneous Approach (ICD-10-PCS; 2018-02-09)
DX: R59.0 Localized enlarged lymph nodes (principal); I10 Essential (primary) hypertension; M06.9 Rheumatoid arthritis, unspecified; M79.7 Fibromyalgia; L40.0 Psoriasis vulgaris; Z85.850 Personal history of malignant neoplasm of thyroid; E89.0 Postprocedural hypothyroidism; D64.9 Anemia, unspecified; Z98.84 Bariatric surgery status; Z88.8 Allergy status to other drugs, medicaments and biological substances
CPT/HCPCS: 36415; 70491-TC; 80053; 84443; 84703; 85025; 96361; 96374; 99282-25; J7030

== ENCOUNTER 2018-03-10 17:35 | Emergency (ER) | payer OTHER ==
[2018-03-10 17:48] VITALS: TEMP 98; BMI 31.8
--- NOTE | 2018-03-10 17:50 | PDOC ---
Rapid Medical Evaluation Time Seen by Provider: 03/10/18 17:40 Medical Evaluation: Allergies Allergy/AdvReac Type Severity Reaction Status Date / Time amlodipine [From Exforge] Allergy Intermediate Rash Verified 02/09/18 04:50 hydrochlorothiazide Allergy Intermediate Rash Verified 02/09/18 02:44 NSAIDS (Non-Steroidal Allergy Intermediate Rash, Verified 02/09/18 02:44 Anti-Inflamma "bleeding" valsartan [From Exforge] Allergy Intermediate Rash Verified 02/09/18 04:50 gabapentin Allergy "itchy,blee Verified 02/09/18 02:44 ding" Vital Signs Temp Pulse Resp BP Pulse Ox 98.0 F 113 H 16 140/94 100 03/10/18 17:46 03/10/18 17:46 03/10/18 17:46 03/10/18 17:46 03/10/18 17:46 03/10/18 17:48 I have performed a brief in-person evaluation of this patient. The patient presents with a chief complaint of: epigastric pain w/ n/v/d intermittent x 1 month. Neg w/u in pmd's office per pt. H/o renal stones and ? gastroparesis Pertinent physical exam findings: Tachy to 113 I have ordered the following:labs The patient will proceed to the ED for further evaluation Discharge Disposition - Diagnosis Epigastric pain - Referrals - Patient Instructions - Post Discharge Activity
[2018-03-10 19:27] LABS: BASO % 0.9 % (0-2.0); HEMATOCRIT 29.6 % (32.4-45.2); HEMOGLOBIN 9.4 GM/dL (10.7-15.3); LYMPH % 15.8 % (8-40); MCH 22.8 pg (25.7-33.7); MCHC 31.8 g/dl (32.0-36.0); MEAN CELL VOLUME 71.7 fl (80-96); MEAN PLT VOLUME 7.7 fl (7.5-11.1); MONO % 6.7 % (3.8-10.2); NEUT % 74.6 % (42.8-82.8); PLATELET COUNT 401 K/MM3 (134-434); RBC 4.12 M/mm3 (3.60-5.2); RDW 18.8 % (11.6-15.6); WHITE BLOOD COUNT 12.9 K/mm3 (4.0-10.0)
[2018-03-10] MEDS ORDERED: ONDANSETRON 4 MG/2 ML VIAL IVPB ONE (19:36)
[2018-03-10] MEDS ORDERED: SODIUM CHLORIDE 1,000 ML IV STA (19:36)
--- NOTE | 2018-03-10 19:36 | PDOC ---
History of Present Illness - General Chief Complaint: Pain Stated Complaint: FEVER, VOMITTING, SOB, PAIN,ALLERGIES Time Seen by Provider: 03/10/18 17:40 History Source: Patient Exam Limitations: No Limitations - History of Present Illness Initial Comments: 03/10/18 19:26 Pt is a 38yo F with PMH of psoriasis, arthritis, Thyroid ca s/p thyroidectomy, fibromyalgia, sponge kidney, recurrent kidney stones presenting to ED with complaints of 2 months of "food allergies", fevers, abdominal pain, generalized arthralgia, weakness. Pt states that everytime she eats something that is not bread or milk, she has tingling sensations in her face and break outs. She says that she has been having epigastric and RUQ abdominal pain as well associated with nausea. She feels weak and lightheaded. LMP was 3 months ago. PMD: Anahy PMH: see hpi PSH: cholecystectomy, appendectomy, gastric sleeve Meds: Otelza, OCP, levothyroxine Social: smokes 2 cigarettes/day Allergies: NSAID, see allergy list Past History - Past Medical History Allergies/Adverse Reactions: Allergies Allergy/AdvReac Type Severity Reaction Status Date / Time amlodipine [From Exforge] Allergy Intermediate Rash Verified 03/10/18 17:48 hydrochlorothiazide Allergy Intermediate Rash Verified 03/10/18 17:48 NSAIDS (Non-Steroidal Allergy Intermediate Rash, Verified 03/10/18 17:48 Anti-Inflamma "bleeding" valsartan [From Exforge] Allergy Intermediate Rash Verified 03/10/18 17:48 gabapentin Allergy "itchy,blee Verified 03/10/18 17:48 ding" Home Medications: Ambulatory Orders Valacyclovir HCl [Valtrex -] 1,000 mg PO DAILY 03/13/15 Levothyroxine [Synthroid -] 175 mcg PO DAILY 07/07/17 Omeprazole 20 mg PO DAILY 12/10/17 hydrOXYzine HCL [Atarax -] 25 mg PO BID 12/10/17 Cholecalciferol (Vitamin D3) [Vitamin D -] 400 unit PO DAILY 12/15/17 Famotidine 20 mg PO DAILY 12/15/17 Folic Acid 1 mg PO DAILY 12/15/17 Mag Hydrox/Al Hydrox/Simeth [MAALOX *SUSPENSION* -] 3 tsp PO PRN PRN 12/16/17 Mag Hydrox/Al Hydrox/Simeth [Mylanta Suspension -] 30 ml PO Q6H #1 bottle Tramadol HCl 50 mg PO BID PRN #10 tablet MDD 2 tabs 02/09/18 Diphenhydramine HCl [Benadryl -] 25 mg PO DAILY #10 capsule 03/11/18 Ondansetron [Ondansetron Odt] 8 mg PO DAILY #7 tab.rapdis 03/11/18 Anemia: Yes Asthma: No Cancer: Yes (thyroid 2001) Cardiac Disorders: No CVA: No COPD: No CHF: No DVT: No Dementia: No Diabetes: No GI Disorders: Yes ("heartburn") Disorders: Yes (recurrent stones) HTN: Yes Hypercholesterolemia: No Kidney Stones: No (M.SPONGE KIDNEY) Liver Disease: No Psychiatric Problems: Yes (depression, fibromyalgias, arthritis) Seizures: No Thyroid Disease: Yes (ca) - Surgical History Abdominal Surgery: Yes (hernia repair, GASTRIC SLEEVE) Cholecystectomy: Yes GI Surgery: Yes (sleeve) - Suicide/Smoking/Psychosocial Hx Smoking History: Never smoked Have you smoked in the past 12 months: No Number of Cigarettes Smoked Daily: 4 Information on smoking cessation initiated: No 'Breaking Loose' booklet given: 01/11/18 Hx Alcohol Use: No Drug/Substance Use Hx: No Substance Use Type: Alcohol Hx Substance Use Treatment: No Review of Systems - Review of Systems Constitutional: Yes: Diaphoresis, Fever, Weakness HEENTM: No: Eye Pain, Recent change in vision, Double Vision, Ear Pain Respiratory: Yes: Cough, Shortness of Breath Cardiac (ROS): Yes: Chest Pain, Lightheadedness, Palpitations ABD/GI: Yes: See HPI, Diarrhea, Nausea, Abdominal cramping. No: Constipated, Rectal Bleeding, Vomiting, Tarry Stools : No: Burning, Dysuria Musculoskeletal: Yes: Back Pain, Joint Pain, Muscle Pain, Muscle Weakness, Neck Pain Integumentary: No: Symptoms Reported Neurological: Yes: Headache. No: Numbness, Tingling, Tremors *Physical Exam - Vital Signs Last Vital Signs Temp Pulse Resp BP Pulse Ox 98.0 F 113 H 16 140/94 100 03/10/18 17:46 03/10/18 17:46 03/10/18 17:46 03/10/18 17:46 03/10/18 18:56 - Physical Exam General Appearance: Yes: Nourished, Appropriately Dressed. No: Apparent Distress HEENT: positive: EOMI, KATHY Neck: positive: Trachea midline, Supple. negative: Decreased range of motion, Lymphadenopathy (R), Lymphadenopathy (L), Rigidity, Tender lateral, Tender midline Respiratory/Chest: positive: Lungs Clear, Normal Breath Sounds. negative: Crackles, Rhonchi, Stridor, Wheezing Cardiovascular: positive: Regular Rhythm, Regular Rate, S1, S2. negative: Edema , JVD, Murmur Vascular Pulses: Carotid (R): 2+, Carotid (L): 2+, Dorsalis-Pedis (R): 2+, Doralis-Pedis (L): 2+ Gastrointestinal/Abdominal: positive: Normal Bowel Sounds, Soft. negative: Distended, Guarding, Rebound, Tenderness Musculoskeletal: negative: CVA Tenderness, Decreased Range of Motion, Vertebral Tenderness Extremity: positive: Normal Capillary Refill, Pelvis Stable. 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 NML intact, Fully Oriented, Alert, Normal Mood/ Affect, Normal Response, Motor Strength 5/5 Moderate Sedation - Procedure Monitoring Vital Signs: Procedure Monitoring Vital Signs Temperature 98.0 F 03/10/18 17:46 Pulse Rate 113 H 03/10/18 17:46 Respiratory Rate 16 03/10/18 17:46 Blood Pressure 140/94 03/10/18 17:46 O2 Sat by Pulse Oximetry (%) 100 03/10/18 18:56 ED Treatment Course - LABORATORY CBC & Chemistry Diagram: 03/10/18 19:01 03/10/18 19:01 Medical Decision Making - Medical Decision Making 03/10/18 19:57 Pt is a 38yo F with PMH of psoriasis, arthritis, Thyroid ca s/p thyroidectomy, fibromyalgia, sponge kidney, recurrent kidney stones presenting to ED with complaints of 2 months of "food allergies", fevers, abdominal pain, generalized arthralgia, weakness. Pt states that everytime she eats something that is not bread or milk, she has tingling sensations in her face and break outs. She says that she has been having epigastric and RUQ abdominal pain as well associated with nausea. She feels weak and lightheaded. LMP was 3 months ago. Vitals: tachycardia PE: no abdominal tenderness, no lymphadenopathy Labs ordered by [facility]. including lipase. Will give pt fluids, zofran for nausea and pepcid. for epigastric pain. Pt complaining of headache. EKG does not show QT prolongation. Added Reglan. 03/10/18 21:35 Pt stating she is having allergic reaction. No gross rash noted, area of erythema behind ears. Pt complaining of burning around lips. Ordered Benadryl and will reevaluate 03/10/18 22:47 Pt still in pain. Will give Percocet. CT abdomen ordered. 03/11/18 07:01 CTAP does not show any acute pathology. All labs wnl. Slightly elevated white count. Pt is otherwise stable, HR decreased. Will give GI and Allergy follow up. Pt dc home. *DC/Admit/Observation/Transfer Diagnosis at time of Disposition: Epigastric pain - Discharge Dispostion Decision to Admit order: No - Prescriptions Prescriptions: Diphenhydramine HCl [Benadryl -] 25 mg PO DAILY #10 capsule Ondansetron [Ondansetron Odt] 8 mg PO DAILY #7 tab.rapdis - Referrals Referrals: Ralf Higginbotham RES [Primary Care Provider] - Gómez Reyes DO [Staff Physician] - Peiro Hobbs MD [Staff Physician] - - Patient Instructions Printed Discharge Instructions: Food Allergy, DI for Abdominal Pain-Adult Additional Instructions: You were seen here today for abdominal pain and allergies. Your tests are normal. I highly recommend you see a GI doctor for further evaluation and management of your abdominal pain and allergies to foods. Dr. Reyes: You can also see an ferry pilot. Dr. Hobbs: Please stay away from foods that cause you to have reactions. Please try to see the GI doctor as soon as you can. Please also schedule an appointment with your primary care doctor for any adjustments of medications you may need. Keep yourself well hydrated. Come back to the emergency room if you have worsening symptoms, abdominal pain gets worse, you start vomiting, or if any new concerning symptom develops. Thank you - Post Discharge Activity
[2018-03-10] MEDS ORDERED: ONDANSETRON 4 MG/2 ML VIAL ONE (19:37)
[2018-03-10] MEDS ORDERED: MAG HYDROX/AL HYDROX/SIMETH 30 ML UNIT-DOSE CUP ONE (19:37)
[2018-03-10] MEDS ORDERED: MAG HYDROX/AL HYDROX/SIMETH 30 ML UNIT-DOSE CUP PO ONE (19:51)
[2018-03-10 19:56] LABS: BLOOD UREA NITROGEN 15 mg/dL (7-18); CHLORIDE 109 mmol/L (98-107); CO2 24 mmol/L (21-32); CREATININE 1.2 mg/dL (0.55-1.3); GLUCOSE,RANDOM 68 mg/dL (74-106); POTASSIUM 4.2 mmol/L (3.5-5.1); SODIUM 140 mmol/L (136-145)
[2018-03-10 19:57] LABS: ALBUMIN 3.5 g/dl (3.4-5.0); ALK PHOS 90 U/L (45-117); ANION GAP 8 MMOL/L (8-16); BILIRUBIN,TOTAL 0.1 mg/dL (0.2-1); CALCIUM 8.8 mg/dL (8.5-10.1); LIPASE 157 U/L (73-393); SGOT/AST 15 U/L (15-37); SGPT/ALT 13 U/L (13-61)
[2018-03-10] MEDS ORDERED: FAMOTIDINE 20 MG/50 ML IVPB 20 MG/50 ML MG IVPB ONE ×2 (20:12→20:17)
[2018-03-10] MEDS ORDERED: ACETAMINOPHEN 1000 MG/100 ML VIAL (NON FORMULARY) IVPB ONE (20:18)
[2018-03-10] MEDS ORDERED: ACETAMINOPHEN INJECTION 100 ML IVPB ONE (20:34)
[2018-03-10 20:57] LABS: URINE APPEARANCE CLEAR; URINE BILIRUBIN NEGATIVE (<2.0 mg/dL); URINE COLOR LTYELLOW; URINE GLUCOSE (UA) NEGATIVE (NEGATIVE); URINE KETONE NEGATIVE (NEGATIVE); URINE LEUK ESTERASE TRACE (NEGATIVE); URINE NITRITE NEGATIVE (NEGATIVE); URINE PROTEIN NEGATIVE (NEGATIVE); URINE UROBILINOGEN NEGATIVE mg/dL (0.2-1.0)
[2018-03-10] MEDS ORDERED: METOCLOPRAMIDE HCL INJECTION 10 MG/2 ML VIAL IVPB ONE (21:05)
--- NOTE | 2018-03-10 21:14 | PDOC ---
Attending Attestation - Resident Resident Name: VereniceAdriana - ED Attending Attestation I have performed the following: I have examined & evaluated the patient, The case was reviewed & discussed with the resident, I agree w/resident's findings & plan, Exceptions are as noted - HPI HPI: 03/10/18 21:16 38 F with h/o psoriasis, arthritis, Thyroid ca s/p thyroidectomy, fibromyalgia, sponge kidney, recurrent kidney stones, presenting with abdominal pain x 1 week. Pt reports periumbilical pain that is worse with eating. She states that she has a h/o gastroparesis and feels like she is having a flare of this. States that when she eats, she gets pain and nausea. However, pt also notes that every time she eats, she breaks out in hives. Denies F/C. - Physicial Exam PE: 03/10/18 21:29 "GENERAL: Awake, alert, and fully oriented, in no acute distress. HEAD: No signs of trauma EYES: PERRLA, EOMI, sclera anicteric, conjunctiva clear ENT: Auricles normal inspection, hearing grossly normal, nares patent, oropharynx clear without exudates. Moist mucosa NECK: Nontender, no stepoffs, Normal ROM, supple, no lymphadenopathy, JVD, or masses LUNGS: Breath sounds equal, clear to auscultation bilaterally. No wheezes, and no crackles HEART: Regular rate and rhythm, normal S1 and S2, no murmurs, rubs or gallops ABDOMEN: + periumbilical tenderness, normoactive bowel sounds. No guarding, no rebound. No masses EXTREMITIES: Normal range of motion, no edema. No clubbing or cyanosis. No cords, erythema, or tenderness NEUROLOGICAL: Cranial nerves II through XII intact. 5/5 strength and sensation in all extremities, Normal speech, normal gait, normal cerebellar function SKIN: Warm, Dry, normal turgor, no rashes or lesions noted. - Medical Decision Making 03/10/18 21:29 38 F with abdominal pain and nausea after eating x 1 week. Possible gastroparesis. Pt also reports hives after eating but does not on exam have any rash. - labs, UA - CTAP - IVF, GI cocktail 03/11/18 00:18 Labs with elevated WBC but pt with no fevers UA unremarkable CTAP prelim read negative Pt reassessed - now has improvement in pain and nausea with GI cocktail, tolerating PO in ED Will DC with GI follow up Pt is well appearing, with normal vitals. Clinically stable for DC at this time. I discussed the physical exam findings, ancillary test results and final diagnoses with the patient. I answered all of the patient's questions. The patient was satisfied with the care received and felt comfortable with the discharge plan and treatment plan. The patient agrees to follow up with the primary care physician within 24-72 hours. <Dereck Restrepo - Last Filed: 03/11/18 00:18> - Medical Decision Making EXAM: CT ABDOMEN AND PELVIS WITH CONTRAST Surgical changes stomach. No bowel obstruction, colitis, diverticulitis, free fluid or free air. Normal appendix. Unremarkable pancreas and gallbladder. Right upper quadrant ventral hernia repair. Nodular contour of subjacent liver could be secondary to the hernia mesh contours, but correlate clinically for alternative possibility of cirrhosis. Subcentimeter hepatic cyst or hemangioma. Subcentimeter cortical hypodensity left kidney. 1.4 cm corpus luteum right ovary. Unremarkable uterus and left ovary. One or more of the following dose reduction techniques were used: automated exposure control, adjustment of the mA and/or kV according to patient size, use of iterative reconstructive technique. Kari Carmichael M.D. 03/11/2018 00:07 EST <Macie Renee - Last Filed: 03/11/18 01:23>
[2018-03-10] MEDS ORDERED: METOCLOPRAMIDE HCL INJECTION 10 MG/2 ML VIAL ONE (21:17)
[2018-03-10 21:29] LABS: EPI CELLS RARE /HPF (FEW); URINE BACTERIA RARE /hpf (NONE SEEN); URINE MUCUS RARE
[2018-03-11 00:17] VITALS: BP 141/80; PULSE 86
--- NOTE | 2018-03-11 12:48 | EKG ---
Test Reason : Blood Pressure : / mmHG Vent. Rate : 081 BPM Atrial Rate : 081 BPM P-R Int : 144 ms QRS Dur : 106 ms QT Int : 382 ms P-R-T Axes : 067 078 058 degrees QTc Int : 443 ms NORMAL SINUS RHYTHM NORMAL ECG WHEN COMPARED WITH ECG OF 11-JAN-2018 22:56, NO SIGNIFICANT CHANGE WAS FOUND Confirmed by SALLIE TREVINO MD ([id number]) on 03/11/2018 12:47:56 PM Referred By: Confirmed By:SALLIE TREVINO MD
== END 2018-03-11 01:24 | disposition home or self-care (01) ==
LOC: JER 17:35
PROC: 3E033NZ Introduction of Analgesics, Hypnotics, Sedatives into Peripheral Vein, Percutaneous Approach (ICD-10-PCS; principal; 2018-03-10)
PROC: 3E033GC Introduction of Other Therapeutic Substance into Peripheral Vein, Percutaneous Approach (ICD-10-PCS; 2018-03-10)
PROC: 3E0337Z Introduction of Electrolytic and Water Balance Substance into Peripheral Vein, Percutaneous Approach (ICD-10-PCS; 2018-03-10)
DX: R10.13 Epigastric pain (principal)
CPT/HCPCS: 36415; 74177-TC; 80053; 81003; 81015; 83690; 84703; 85025; 93005; 93010; 96361; 96365; 96375; 99283-25; J0131; J7030

== ENCOUNTER 2018-03-28 22:11 | Emergency (ER) | payer OTHER ==
[2018-03-28 22:20] VITALS: TEMP 98.1; BMI 31.8
[2018-03-28] MEDS ORDERED: morphine CARPU-JECT 4 MG/1 ML DISP.SYRIN IVPUSH ONE (23:12)
[2018-03-28] MEDS ORDERED: SODIUM CHLORIDE 1,000 ML IV SCH (23:15)
--- NOTE | 2018-03-28 23:16 | PDOC ---
History of Present Illness - General Stated Complaint: ABDOMINAL AND BACK PAIN Time Seen by Provider: 03/28/18 23:12 History Source: Patient Exam Limitations: No Limitations - History of Present Illness Initial Comments: 03/28/18 23:15 38 year old woman with a history of psoriasis, arthritis, thyroid ca s/p thyroidectomy, fibromyalgia, sponge kidney, recurrent kidney stones presenting with passage of multiple kidney stones occurring on 03/21, 03/22 and 03/24. The patient reports that since yesterday she has been having scratching sensation in her urethra when urinating and L flank pain starting today at 1700 sharp travelling to the [facility] 01/06. She recorded a rectal temp of 100.9F and 101.3F today. The patient also complained of 5 days of diarrhea, nausea and headaches. Patient's LNMP 03/21. Patient took Tylenol 650 x2 at 2000 with mild relief. The patient denies chest pain or shortness of breath. She has no other complaints at bedside. Past History - Past Medical History Allergies/Adverse Reactions: Allergies Allergy/AdvReac Type Severity Reaction Status Date / Time amlodipine [From Exforge] Allergy Intermediate Rash Verified 03/28/18 22:21 hydrochlorothiazide Allergy Intermediate Rash Verified 03/28/18 22:21 NSAIDS (Non-Steroidal Allergy Intermediate Rash, Verified 03/28/18 22:21 Anti-Inflamma "bleeding" valsartan [From Exforge] Allergy Intermediate Rash Verified 03/28/18 22:21 gabapentin Allergy "itchy,blee Verified 03/28/18 22:21 ding" Home Medications: Ambulatory Orders Valacyclovir HCl [Valtrex -] 1,000 mg PO DAILY 03/13/15 Levothyroxine [Synthroid -] 175 mcg PO DAILY 07/07/17 Omeprazole 20 mg PO DAILY 12/10/17 hydrOXYzine HCL [Atarax -] 25 mg PO BID 12/10/17 Cholecalciferol (Vitamin D3) [Vitamin D -] 400 unit PO DAILY 12/15/17 Famotidine 20 mg PO DAILY 12/15/17 Folic Acid 1 mg PO DAILY 12/15/17 Mag Hydrox/Al Hydrox/Simeth [MAALOX *SUSPENSION* -] 3 tsp PO PRN PRN 12/16/17 Mag Hydrox/Al Hydrox/Simeth [Mylanta Suspension -] 30 ml PO Q6H #1 bottle Tramadol HCl 50 mg PO BID PRN #10 tablet MDD 2 tabs 02/09/18 Diphenhydramine HCl [Benadryl -] 25 mg PO DAILY #10 capsule 03/11/18 Ondansetron [Ondansetron Odt] 8 mg PO DAILY #7 tab.rapdis 03/11/18 Anemia: Yes Asthma: No Cancer: Yes (thyroid 2001) Cardiac Disorders: No CVA: No COPD: No CHF: No DVT: No Dementia: No Diabetes: No GI Disorders: Yes ("heartburn") Disorders: Yes (recurrent stones) HTN: Yes Hypercholesterolemia: No Kidney Stones: No (M.SPONGE KIDNEY) Liver Disease: No Psychiatric Problems: Yes (depression, fibromyalgias, arthritis) Seizures: No Thyroid Disease: Yes (ca) - Surgical History Abdominal Surgery: Yes (hernia repair, GASTRIC SLEEVE) Cholecystectomy: Yes GI Surgery: Yes (sleeve) - Suicide/Smoking/Psychosocial Hx Smoking History: Current every day smoker Have you smoked in the past 12 months: No Number of Cigarettes Smoked Daily: 6 Information on smoking cessation initiated: No 'Breaking Loose' booklet given: 01/11/18 Hx Alcohol Use: No Drug/Substance Use Hx: No Substance Use Type: Alcohol Hx Substance Use Treatment: No Review of Systems - Review of Systems Able to Perform ROS?: Yes Is the patient limited Nepalese proficient: No Constitutional: Yes: Fever. No: Chills, Diaphoresis Respiratory: No: Cough, Orthopnea, Shortness of Breath Cardiac (ROS): No: Chest Pain, Lightheadedness, Palpitations ABD/GI: No: Constipated, Diarrhea, Nausea, Vomiting : Yes: Flank Pain, Hematuria, Pain. No: Burning, Dysuria, Frequency Musculoskeletal: Yes: See HPI, Back Pain Neurological: No: Headache, Numbness, Tingling *Physical Exam - Vital Signs Last Vital Signs Temp Pulse Resp BP Pulse Ox 98.1 F 98 H 18 148/92 100 03/28/18 22:14 03/28/18 22:14 03/28/18 22:14 03/28/18 22:14 03/28/18 22:14 - Physical Exam Comments: GENERAL: Awake, alert, and fully oriented, in no acute distress HEAD: No signs of trauma, normocephalic, atraumatic EYES: EOMI, sclera anicteric, conjunctiva clear ENT: oropharynx clear without exudates. Moist mucosa NECK: Normal ROM, supple LUNGS: No distress, speaks full sentences, clear to auscultation bilaterally HEART: Regular rate and rhythm, normal S1 and S2, no murmurs, rubs or gallops, peripheral pulses normal and equal bilaterally. ABDOMEN: Soft, slight tenderness to RUQ palpation, normoactive bowel sounds. No guarding, no rebound. No masses EXTREMITIES : Normal inspection, Normal range of motion, no edema. No clubbing or cyanosis. NEUROLOGICAL: Cranial nerves II through XII grossly intact. Normal speech, normal gait, no focal sensorimotor deficits SKIN: Warm, Dry, normal turgor, no rashes or lesions noted Moderate Sedation - Procedure Monitoring Vital Signs: Procedure Monitoring Vital Signs Temperature 98.1 F 03/28/18 22:14 Pulse Rate 98 H 03/28/18 22:14 Respiratory Rate 18 03/28/18 22:14 Blood Pressure 148/92 03/28/18 22:14 O2 Sat by Pulse Oximetry (%) 100 03/28/18 22:14 ED Treatment Course - LABORATORY CBC & Chemistry Diagram: 03/29/18 00:20 03/29/18 00:20 Medical Decision Making - Medical Decision Making 03/29/18 00:26 38 year old woman with a history of psoriasis, arthritis, thyroid ca s/p thyroidectomy, fibromyalgia, sponge kidney, recurrent kidney stones presenting with passage of multiple kidney stones occurring on 03/21, 03/22 and 03/24. The patient reports that since yesterday she has been having scratching sensation in her urethra when urinating and L flank pain starting today at 1700 sharp travelling to the [facility] 01/06. She recorded a rectal temp of 100.9F and 101.3F today. The patient also complained of 5 days of diarrhea, nausea and headaches. Patient's LNMP 03/21. Patient took Tylenol 650 x2 at 1999 with mild relief. The patient denies chest pain or shortness of breath. She has no other complaints at bedside. ED Course: Consider renal colic vs nephrolithiasis vs UTI vs pyelonephritis ua, ucx, upreg, cbc, cmp 03/29/18 01:43 Labwork - unremarkable. Patient reassessed. Feels improved. Patient stable for discharge. Informed of all lab and imaging results. Given follow up instructions and strict return precautions. Patient expressed understanding and agree to plan. *DC/Admit/Observation/Transfer Diagnosis at time of Disposition: Abdominal pain, Flank pain - Discharge Dispostion Disposition: HOME Condition at time of disposition: Stable Decision to Admit order: No - Referrals Referrals: Ralf Higginbotham RES [Primary Care Provider] - - Patient Instructions Printed Discharge Instructions: Kidney Stones -- Adult Additional Instructions: You were seen in the ED for complaints of flank pain and abdominal pain. In the ED you were evaluated with labwork. There does not appear to be an acute need for immediate hospitalization. You are advised to follow up with your Primary Care Physician within 1 week. Return to the ED immediately if you experience worsening flank, abdominal pain, nausea, vomiting, fever, chest pain or shortness of breath. - Post Discharge Activity
--- NOTE | 2018-03-28 23:22 | PDOC ---
Attending Attestation - HPI HPI: 03/29/18 00:00 The patient is a 38 year old female, with a significant past medical history of kidney stones, thyroid CA s/p thyroidectomy, anemia, who presents to the emergency department with complaint of discomfort and scratching sensation to her urethra with urination, left flank pain, fever, diarrhea, and hematuria. She states her urethral pain is unlike her usual discomfort with passing kidney stones. She states the pain usually happens when she passes the stone, however, states the pain has been present with multiple urines today. She also reports left flank pain, 10/10 in severity, constant, with radiation to her RUQ. She states she took two 650 mg Tylenol without relief of pain today. She states her rectal temperature was 101F today. She states she visualized 3 stones passing with urination over the course of a few days last week. She states she had a CT on 03/10/18 when she presented with nausea and vomiting. The patient denies chest pain, shortness of breath, headache and dizziness. The patient denies chills, nausea, vomit, diarrhea and constipation. The patient denies frequency, urgency. Allergies: see nursing notes Past surgical history: RUQ ventral hernia s/p repair, thyroidectomy, cholecystectomy - Physicial Exam PE: 03/29/18 00:00 GENERAL: Awake, alert, and fully oriented, in no acute distress HEAD: No signs of trauma EYES: PERRLA, EOMI, sclera anicteric, conjunctiva clear ENT: Auricles normal inspection, hearing grossly normal, nares patent, oropharynx clear without exudates. Moist mucosa NECK: Normal ROM, supple, no lymphadenopathy, JVD, or masses LUNGS: Breath sounds equal, clear to auscultation bilaterally. No wheezes, and no crackles HEART: Regular rate and rhythm, normal S1 and S2, no murmurs, rubs or gallops ABDOMEN: Soft, nontender, normoactive bowel sounds. No guarding, no rebound. No masses EXTREMITIES: Normal range of motion, no edema. No clubbing or cyanosis. No cords, erythema, or tenderness NEUROLOGICAL: Cranial nerves II through XII grossly intact. Normal speech, normal gait SKIN: Warm, Dry, normal turgor, no rashes or lesions noted. - Medical Decision Making 03/29/18 00:00 Documentation prepared by Macie Renee, acting as medical practice manager for Elis Fried MD <Macie Renee - Last Filed: 03/29/18 00:00> - Resident Resident Name: Penny Tee - ED Attending Attestation I have performed the following: I have examined & evaluated the patient, The case was reviewed & discussed with the resident, I agree w/resident's findings & plan - Physicial Exam PE: 03/29/18 00:20 Agree with resident exam. - Medical Decision Making 03/29/18 00:19 Complete workup done 2 weeks ago. Home with outpatient follow up. Pt will be given 2 percocets here for her renal colic. 03/29/18 02:28 UA is the same as old; culture pending. She will follow with her docs across the street in the clinic. <Elis Fried - Last Filed: 03/29/18 02:29>
[2018-03-29] MEDS ORDERED: morphine SULFATE 4 MG/ML VIAL ONE (00:45)
[2018-03-29 00:58] LABS: BASO % 0.8 % (0-2.0); EOS % 3.5 % (0-4.5); HEMATOCRIT 28.1 % (32.4-45.2); HEMOGLOBIN 8.7 GM/dL (10.7-15.3); LYMPH % 43.9 % (8-40); MCH 22.2 pg (25.7-33.7); MCHC 30.9 g/dl (32.0-36.0); MEAN CELL VOLUME 71.9 fl (80-96); MEAN PLT VOLUME 7.4 fl (7.5-11.1); MONO % 9.2 % (3.8-10.2); NEUT % 42.6 % (42.8-82.8); PLATELET COUNT 303 K/MM3 (134-434); RDW 18.6 % (11.6-15.6); WHITE BLOOD COUNT 6.7 K/mm3 (4.0-10.0)
[2018-03-29 01:00] LABS: URINE APPEARANCE CLEAR; URINE BILIRUBIN NEGATIVE (<2.0 mg/dL); URINE COLOR YELLOW; URINE GLUCOSE (UA) NEGATIVE (NEGATIVE); URINE KETONE NEGATIVE (NEGATIVE); URINE LEUK ESTERASE NEGATIVE (NEGATIVE); URINE NITRITE NEGATIVE (NEGATIVE); URINE PROTEIN NEGATIVE (NEGATIVE); URINE UROBILINOGEN NEGATIVE mg/dL (0.2-1.0)
[2018-03-29 01:01] LABS: HCG,QUALITATIVE URINE Negative
[2018-03-29 01:07] LABS: EPI CELLS RARE /HPF (FEW); URINE MUCUS RARE
[2018-03-29 01:25] LABS: ALBUMIN 3.3 g/dl (3.4-5.0); ALK PHOS 100 U/L (45-117); ANION GAP 7 MMOL/L (8-16); BILIRUBIN,TOTAL 0.1 mg/dL (0.2-1); BLOOD UREA NITROGEN 16 mg/dL (7-18); CALCIUM 8.5 mg/dL (8.5-10.1); CHLORIDE 109 mmol/L (98-107); CO2 24 mmol/L (21-32); CREATININE 0.8 mg/dL (0.55-1.3); GLUCOSE,RANDOM 105 mg/dL (74-106); POTASSIUM 4.2 mmol/L (3.5-5.1); SGOT/AST 17 U/L (15-37); SGPT/ALT 18 U/L (13-61); SODIUM 140 mmol/L (136-145); TOT PROT 7.2 g/dl (6.4-8.2)
[2018-03-29 02:06] VITALS: BP 132/76; PULSE 78
== END 2018-03-29 02:30 | disposition home or self-care (01) ==
LOC: JER 22:11
PROC: 3E033NZ Introduction of Analgesics, Hypnotics, Sedatives into Peripheral Vein, Percutaneous Approach (ICD-10-PCS; principal; 2018-03-28)
DX: R10.32 Left lower quadrant pain (principal); Z87.442 Personal history of urinary calculi; M12.9 Arthropathy, unspecified; M79.7 Fibromyalgia; Z85.850 Personal history of malignant neoplasm of thyroid; E89.0 Postprocedural hypothyroidism
CPT/HCPCS: 36415; 80053; 81003; 81015; 84703; 85025; 87086; 96374; 99282-25; J7030

== ENCOUNTER 2019-05-08 05:21 | Emergency (ER) | payer OTHER ==
[2019-05-08 06:12] VITALS: BP 126/88; PULSE 81; TEMP 98.1; BMI 37.9
--- NOTE | 2019-05-08 07:56 | PDOC ---
History of Present Illness - General Chief Complaint: Edema Stated Complaint: CHEST,BACK,BODY PAIN Time Seen by Provider: 05/08/19 07:51 - History of Present Illness Initial Comments: Adeel Monge is a 39 y/o female with PMH significant for thyroid CA s/p thyroidectomy, medullary sponge kidney disease, fibromyalgia, presenting today with generalized body edema that started 1 month ago. Reports that it has been going on for a while, but has not been able to sleep for the past couple of days and therefore presented to the ED today. Reports generalized swelling over the lower extremities and abdomen. Reports thoracic back pain and feeling like "my ribs have come out of their cage." Reports reproducible chest pain. Denies fever/chills. Denies chest pain/shortness of breath. Denies cough. Denies dysuria/diarrhea. Past History - Past Medical History Allergies/Adverse Reactions: Allergies Allergy/AdvReac Type Severity Reaction Status Date / Time amlodipine [From Exforge] Allergy Intermediate Rash Verified 05/08/19 06:04 hydrochlorothiazide Allergy Intermediate Rash Verified 05/08/19 06:04 NSAIDS (Non-Steroidal Allergy Intermediate Rash, Verified 05/08/19 06:04 Anti-Inflamma "bleeding" valsartan [From Exforge] Allergy Intermediate Rash Verified 05/08/19 06:04 gabapentin Allergy "itchy,blee Verified 05/08/19 06:04 ding" Home Medications: Ambulatory Orders Valacyclovir HCl [Valtrex -] 1,000 mg PO DAILY 03/13/15 Levothyroxine [Synthroid -] 175 mcg PO DAILY 07/07/17 Omeprazole 20 mg PO DAILY 12/10/17 hydrOXYzine HCL [Atarax -] 25 mg PO BID 12/10/17 Cholecalciferol (Vitamin D3) [Vitamin D -] 400 unit PO DAILY 12/15/17 Famotidine 20 mg PO DAILY 12/15/17 Folic Acid 1 mg PO DAILY 12/15/17 Mag Hydrox/Al Hydrox/Simeth [MAALOX *SUSPENSION* -] 3 tsp PO PRN PRN 12/16/17 Mag Hydrox/Al Hydrox/Simeth [Mylanta Suspension -] 30 ml PO Q6H #1 bottle Tramadol HCl 50 mg PO BID PRN #10 tablet MDD 2 tabs 02/09/18 Diphenhydramine HCl [Benadryl -] 25 mg PO DAILY #10 capsule 03/11/18 Ondansetron [Ondansetron Odt] 8 mg PO DAILY #7 tab.rapdis 03/11/18 Cetirizine HCl [Zyrtec -] 10 mg PO DAILY #7 tablet 05/08/19 Anemia: Yes Asthma: No Cancer: Yes (thyroid 2002) Cardiac Disorders: No CVA: No COPD: No CHF: No DVT: No Dementia: No Diabetes: No GI Disorders: Yes ("heartburn") Disorders: Yes (recurrent stones) HTN: Yes Hypercholesterolemia: No Kidney Stones: No (M.SPONGE KIDNEY) Liver Disease: No Psychiatric Problems: Yes (depression, fibromyalgias, arthritis) Seizures: No Thyroid Disease: Yes (ca) - Surgical History Abdominal Surgery: Yes (hernia repair, GASTRIC SLEEVE) Cholecystectomy: Yes GI Surgery: Yes (sleeve) - Immunization History Immunization Up to Date: Yes - Psycho Social/Smoking Cessation Hx Smoking History: Current every day smoker Have you smoked in the past 12 months: No Number of Cigarettes Smoked Daily: 10 Information on smoking cessation initiated: No 'Breaking Loose' booklet given: 01/11/18 Hx Alcohol Use: No Drug/Substance Use Hx: No Substance Use Type: Alcohol Hx Substance Use Treatment: No Review of Systems - Review of Systems Comments:: GENERAL/CONSTITUTIONAL: No fever or chills. No weakness._ HEAD, EYES, EARS, NOSE AND THROAT: No change in vision. No change in hearing. No sore throat._ CARDIOVASCULAR: No chest pain or shortness of breath_ RESPIRATORY: Denies cough, hemoptysis_ GASTROINTESTINAL: No nausea, vomiting, diarrhea or constipation._ GENITOURINARY: No dysuria, frequency, or change in urination._ MUSCULOSKELETAL: Reports edema in bilateral lower extremities and over abdomen. SKIN: No rash_ NEUROLOGIC: No headache, vertigo, loss of consciousness, or change in strength/ sensation._ ENDOCRINE: No increased thirst. No abnormal weight change_ HEMATOLOGIC/LYMPHATIC: No easy bleeding, or history of blood clots._ ALLERGIC/IMMUNOLOGIC: No hives or skin allergy._ *Physical Exam - Vital Signs Last Vital Signs Temp Pulse Resp BP Pulse Ox 98.1 F 81 20 126/88 100 05/08/19 06:04 05/08/19 06:04 05/08/19 06:04 05/08/19 06:04 05/08/19 06:04 - Physical Exam GENERAL: Awake, alert, and oriented to person/place/time, in no acute distress_ HEAD: No signs of trauma, normoc ephalic, atraumatic _ EYES: PERRLA, EOMI, sclera anicteric, conjunctiva clear_ ENT: Hearing grossly normal, nares patent, oropharynx clear without exudates. No uvular deviation. Moist mucosa_ NECK: Normal ROM, supple, no lymphadenopathy, JVD, or masses_ LUNGS: No distress, speaks in full sentences, clear to auscultation bilaterally _ CHEST: Pain on light touch to posterior shoulders but no tenderness and no rash/ bruises/trauma. HEART: Regular rate and rhythm, normal S1 and S2, no murmurs appreciated, peripheral pulses normal and equal bilaterally._ ABDOMEN: Soft, pain on light touch but no tenderness, normoactive bowel sounds. No guarding, no rebound. No masses_ EXTREMITIES: Normal inspection, Normal range of motion No clubbing or cyanosis. No signs of pitting edema. Pain on light touch but no tenderness. NEUROLOGICAL: Cranial nerves II through XII grossly intact. Normal speech, normal gait, no focal sensorimotor deficits _ SKIN: Warm, Dry, normal turgor, no rashes or lesions noted_ ED Treatment Course - LABORATORY CBC & Chemistry Diagram: 05/08/19 08:05 05/08/19 08:05 Medical Decision Making - Medical Decision Making 05/08/19 08:39 EKG shows NSR, 83 bpm, no ST elevation/depression, QTc 458. 05/08/19 08:43 39F presenting with generalized body edema and pain. No objective edema noted on exam. Pain to light touch but no tenderness appreciated. -cbc, cmp, bnp -ekg, trop, cxr -ua, ucx 05/08/19 09:05 CXR negative. Labs and UA reviewed. Laboratory Last Values WBC 11.4 K/mm3 (4.0-10.0) H 05/08/19 08:05 RBC 3.99 M/mm3 (3.60-5.2) 05/08/19 08:05 Hgb 8.3 GM/dL (10.7-15.3) L 05/08/19 08:05 Hct 27.7 % (32.4-45.2) L 05/08/19 08:05 MCV 69.4 fl (80-96) L 05/08/19 08:05 MCH 20.8 pg (25.7-33.7) L 05/08/19 08:05 MCHC 30.0 g/dl (32.0-36.0) L 05/08/19 08:05 RDW 20.1 % (11.6-15.6) H 05/08/19 08:05 Plt Count 481 K/MM3 (134-434) H D 05/08/19 08:05 MPV 7.7 fl (7.5-11.1) 05/08/19 08:05 Absolute Neuts (auto) 5.7 K/mm3 (1.5-8.0) 05/08/19 08:05 Neutrophils % 49.7 % (42.8-82.8) 05/08/19 08:05 Lymphocytes % 35.8 % (8-40) 05/08/19 08:05 Monocytes % 9.2 % (3.8-10.2) 05/08/19 08:05 Eosinophils % 4.2 % (0-4.5) 05/08/19 08:05 Basophils % 1.1 % (0-2.0) 05/08/19 08:05 Nucleated RBC % 0 % (0-0) 05/08/19 08:05 Sodium 139 mmol/L (136-145) 05/08/19 08:05 Potassium 4.3 mmol/L (3.5-5.1) 05/08/19 08:05 Chloride 108 mmol/L (98-107) H 05/08/19 08:05 Carbon Dioxide 27 mmol/L (21-32) 05/08/19 08:05 Anion Gap 4 MMOL/L (8-16) L 05/08/19 08:05 BUN 14.5 mg/dL (7-18) 05/08/19 08:05 Creatinine 0.9 mg/dL (0.55-1.3) 05/08/19 08:05 Est GFR (CKD-EPI)AfAm 93.35 05/08/19 08:05 Est GFR (CKD-EPI)NonAf 80.54 05/08/19 08:05 Random Glucose 89 mg/dL (74-106) 02/09/20 08:05 Calcium 9.0 mg/dL (8.5-10.1) 05/08/19 08:05 Total Bilirubin 0.2 mg/dL (0.2-1) 05/08/19 08:05 AST 28 U/L (15-37) 05/08/19 08:05 ALT 22 U/L (13-61) 05/08/19 08:05 Alkaline Phosphatase 116 U/L (45-117) 05/08/19 08:05 Troponin I < 0.02 ng/ml (0.00-0.05) 05/08/19 08:05 B-Natriuretic Peptide 247.6 pg/ml (5-125) H 05/08/19 08:05 Total Protein 7.5 g/dl (6.4-8.2) 05/08/19 08:05 Albumin 3.3 g/dl (3.4-5.0) L 05/08/19 08:05 Urine Color Dk yellow 05/08/19 08:05 Urine Appearance Clear 05/08/19 08:05 Urine pH 6.0 (5.0-8.0) 05/08/19 08:05 Ur Specific [place] 1.025 (1.010-1.035) 05/08/19 08:05 Urine Protein Negative (NEGATIVE) 05/08/19 08:05 Urine Glucose (UA) Negative (NEGATIVE) 05/08/19 08:05 Urine Ketones Negative (NEGATIVE) 05/08/19 08:05 Urine Blood Negative (NEGATIVE) 05/08/19 08:05 Urine Nitrite Negative (NEGATIVE) 05/08/19 08:05 Urine Bilirubin Negative (NEGATIVE) 05/08/19 08:05 Urine Urobilinogen 0.2 mg/dL (0.2-1.0) 05/08/19 08:05 Ur Leukocyte Esterase Negative (NEGATIVE) 05/08/19 08:05 05/08/19 09:36 Pt reassessed. Plan to d/c home with PCP f/u. All questions answered. Return precautions given. Pt verbalized understanding and agreement with plan. Discharge - Discharge Information Problems reviewed: Yes Clinical Impression/Diagnosis: Muscle ache Condition: Stable Disposition: HOME - Admission No - Additional Discharge Information Prescriptions: Cetirizine HCl [Zyrtec -] 10 mg PO DAILY #7 tablet - Follow up/Referral Referrals: Víctor Ott MD [Staff Physician] - ON STAFF,NOT [Primary Care Provider] - - Patient Discharge Instructions Additional Instructions: Your lab work, chest x-ray, and EKG came back normal. Please take Zyrtec once a day for a week. If you experience any new, worsening, or concerning symptoms, please return to the emergency department. - Post Discharge Activity
--- NOTE | 2019-05-08 08:06 | PDOC ---
Attending Attestation - Resident Resident Name: Leonel Benjamin - HPI HPI: 05/12/19 10:32 Pt presents to the ED complaining of generalized body pain and edema, that is apparently chronic for her. Patient has multiple diffuse complaints. - Physicial Exam PE: 05/12/19 10:35 Agree with resident exam. Patient is alert and oriented and in no acute distress. Lungs are clear. CV: rrr no m/r/g Abdomen: soft, non tender, non distended, without guarding or rebound. - Medical Decision Making 05/12/19 10:46 Pt presents to the ED complaining of generalized edema. Labs to check heart, kidneys and liver normal or unchanged. Will discharge home with instructions to follow up with PCP.
[2019-05-08 08:31] LABS: URINE APPEARANCE CLEAR; URINE BILIRUBIN NEGATIVE (NEGATIVE); URINE COLOR DK YELLOW; URINE GLUCOSE (UA) NEGATIVE (NEGATIVE); URINE KETONE NEGATIVE (NEGATIVE); URINE LEUK ESTERASE NEGATIVE (NEGATIVE); URINE NITRITE NEGATIVE (NEGATIVE); URINE PROTEIN NEGATIVE (NEGATIVE); URINE UROBILINOGEN 0.2 mg/dL (0.2-1.0)
[2019-05-08 08:49] LABS: ALBUMIN 3.3 g/dl (3.4-5.0); BILIRUBIN,TOTAL 0.2 mg/dL (0.2-1); BLOOD UREA NITROGEN 14.5 mg/dL (7-18); CREATININE 0.9 mg/dL (0.55-1.3); POTASSIUM 4.3 mmol/L (3.5-5.1); TOT PROT 7.5 g/dl (6.4-8.2)
[2019-05-08 08:51] LABS: N-TERMINAL BNP 247.6 pg/ml (5-125)
[2019-05-08 08:58] LABS: BASO % 1.1 % (0-2.0); EOS % 4.2 % (0-4.5); HEMATOCRIT 27.7 % (32.4-45.2); HEMOGLOBIN 8.3 GM/dL (10.7-15.3); LYMPH % 35.8 % (8-40); MCH 20.8 pg (25.7-33.7); MEAN CELL VOLUME 69.4 fl (80-96); MEAN PLT VOLUME 7.7 fl (7.5-11.1); MONO % 9.2 % (3.8-10.2); NEUT % 49.7 % (42.8-82.8); PLATELET COUNT 481 K/MM3 (134-434); RBC 3.99 M/mm3 (3.60-5.2); RDW 20.1 % (11.6-15.6); WHITE BLOOD COUNT 11.4 K/mm3 (4.0-10.0)
[2019-05-08] MEDS ORDERED: ACETAMINOPHEN 1000 MG/100 ML VIAL (NON FORMULARY) IVPB ONE (09:13)
[2019-05-08 13:04] LABS: ANISOCYTOSIS 1+; MACROCYTOSIS 0; PLATELET ESTIMATE NORMAL
--- NOTE | 2019-05-08 14:11 | EKG ---
Test Reason : Blood Pressure : / mmHG Vent. Rate : 083 BPM Atrial Rate : 083 BPM P-R Int : 136 ms QRS Dur : 094 ms QT Int : 390 ms P-R-T Axes : 057 066 042 degrees QTc Int : 458 ms NORMAL SINUS RHYTHM NORMAL ECG Confirmed by MD SESAY GREGORY ([id number]) on 05/08/2019 2:10:53 PM Referred By: Confirmed By:MADISON SESAY MD
== END 2019-05-08 09:57 | disposition home or self-care (01) ==
LOC: JER 05:21
PROC: 3E033NZ Introduction of Analgesics, Hypnotics, Sedatives into Peripheral Vein, Percutaneous Approach (ICD-10-PCS; principal; 2019-05-08)
DX: M79.18 Myalgia, other site (principal); I10 Essential (primary) hypertension; D64.9 Anemia, unspecified; Q61.5 Medullary cystic kidney; Z85.850 Personal history of malignant neoplasm of thyroid; E89.0 Postprocedural hypothyroidism; M79.7 Fibromyalgia; M12.9 Arthropathy, unspecified; F32.9 Major depressive disorder, single episode, unspecified; Z87.442 Personal history of urinary calculi; Z88.8 Allergy status to other drugs, medicaments and biological substances; Z88.6 Allergy status to analgesic agent
CPT/HCPCS: 36415; 71046-TC-FY; 80053; 81003; 83880; 84484; 85025; 87086; 87186; 93005; 93010; 96374; 99285-25

== ENCOUNTER 2023-06-24 18:07 | Emergency (ER) | payer OTHER ==
[2023-06-24 18:24] VITALS: BMI 41.2
[2023-06-24 20:51] LABS: BASO % 0.8 % (0-2.0); EOS % 2.5 % (0-4.5); HEMATOCRIT 45.6 % (32.4-45.2); HEMOGLOBIN 15.7 GM/dL (10.7-15.3); LYMPH % 27.1 % (8-40); MCH 33.3 pg (25.7-33.7); MCHC 34.3 g/dl (32.0-36.0); MEAN PLT VOLUME 7.4 fl (7.5-11.1); MONO % 6.5 % (3.8-10.2); NEUT % 63.1 % (42.8-82.8); PLATELET COUNT 265 10^3/uL (134-434); RDW 13.6 % (11.6-15.6); WHITE BLOOD COUNT 12.4 K/mm3 (4.0-10.0)
[2023-06-24 20:52] LABS: EPI CELLS 16 /uL (0-25.1); HYALINE CASTS 0 /uL (0-3.1); PH,URINE 5.5 (5.0-8.0); URINE APPEARANCE CLEAR; URINE BACTERIA 44 /uL (0-1359); URINE BILIRUBIN NEGATIVE (NEGATIVE); URINE COLOR YELLOW; URINE GLUCOSE (UA) NEGATIVE (NEGATIVE); URINE KETONE NEGATIVE (NEGATIVE); URINE LEUK ESTERASE NEGATIVE (NEGATIVE); URINE NITRITE NEGATIVE (NEGATIVE); URINE PROTEIN NEGATIVE (NEGATIVE); URINE RBC 61 /uL (0-23.9); URINE UROBILINOGEN 0.2 mg/dL (0.2-1.0); URINE WBC 6 /uL (0-25.8)
[2023-06-24] MEDS ORDERED: morphine SULFATE 4 MG/ML VIAL ONE (20:56)
[2023-06-24] MEDS: SODIUM CHLORIDE 0.9% 500 ML INFUS.BAG IV ONE (21:00)
[2023-06-24] MEDS: morphine CARPU-JECT 4 MG/1 ML DISP.SYRIN IVPUSH ONE (21:16)
[2023-06-24 21:17] LABS: POTASSIUM 4.3 mmol/L (3.5-5.1)
[2023-06-24 21:19] LABS: BLOOD UREA NITROGEN 10.4 mg/dL (7-18); CALCIUM 9.6 mg/dL (8.5-10.1)
[2023-06-24 21:20] LABS: ALBUMIN 3.6 g/dl (3.4-5.0)
[2023-06-24 21:24] LABS: BILIRUBIN,TOTAL 0.3 mg/dL (0.2-1); TOT PROT 7.3 g/dl (6.4-8.2)
[2023-06-24] MEDS ORDERED: ACETAMINOPHEN INJECTION 100 ML IVPB ONE (23:08)
[2023-06-24] MEDS: ACETAMINOPHEN 1000 MG/100 ML BAG IVPB ONE (23:21)
[2023-06-25] MEDS: traMADol HCL 50 MG TABLET PO ONE (00:18)
[2023-06-25] MEDS ORDERED: morphine SULFATE 4 MG/ML VIAL ONE (00:22)
[2023-06-25] MEDS: morphine CARPU-JECT 4 MG/1 ML DISP.SYRIN IVPUSH ONE (00:31)
[2023-06-25 00:41] VITALS: BP 130/94; PULSE 67; RESP 16; TEMP 98.1
== END 2023-06-25 00:57 | disposition home or self-care (01) ==
LOC: JER 18:07
PROC: 3E030NZ Introduction of Analgesics, Hypnotics, Sedatives into Peripheral Vein, Open Approach (ICD-10-PCS; principal; 2023-06-24)
PROC: 3E030NZ Introduction of Analgesics, Hypnotics, Sedatives into Peripheral Vein, Open Approach (ICD-10-PCS; 2023-06-24)
PROC: 3E030NZ Introduction of Analgesics, Hypnotics, Sedatives into Peripheral Vein, Open Approach (ICD-10-PCS; 2023-06-25)
DX: R51.9 Headache, unspecified (principal); R09.81 Nasal congestion; R50.9 Fever, unspecified; R10.813 Right lower quadrant abdominal tenderness; R10.814 Left lower quadrant abdominal tenderness; R11.0 Nausea; R31.9 Hematuria, unspecified; N83.201 Unspecified ovarian cyst, right side; M27.40 Unspecified cyst of jaw
CPT/HCPCS: 36415; 70450-TC; 70486-TC; 71046-TC-FY; 74177-TC; 80053; 81003; 83605; 84703; 85025; 87040; 87086; 99285-25; J0131

== ENCOUNTER 2023-09-20 20:22 | Emergency (ER) | payer OTHER ==
[2023-09-20 20:31] VITALS: BP 114/79; PULSE 82; RESP 20; TEMP 98.1; BMI 41.2
[2023-09-20] MEDS ORDERED: ACETAMINOPHEN 500 MG TABLET (FP) ONE (21:43)
[2023-09-20] MEDS: ACETAMINOPHEN 500 MG TABLET (FP) PO ONE (21:44)
[2023-09-20 22:01] LABS: BASO % 0.8 % (0-2.0); EOS % 3.7 % (0-4.5); HEMATOCRIT 45.7 % (32.4-45.2); HEMOGLOBIN 15.6 GM/dL (10.7-15.3); LYMPH % 36.2 % (8-40); MCH 33.4 pg (25.7-33.7); MEAN CELL VOLUME 98.1 fl (80-96); MEAN PLT VOLUME 7.6 fl (7.5-11.1); MONO % 8.5 % (3.8-10.2); NEUT % 50.8 % (42.8-82.8); PLATELET COUNT 211 10^3/uL (134-434); RBC 4.67 M/mm3 (3.60-5.2); RDW 12.9 % (11.6-15.6); WHITE BLOOD COUNT 6.7 K/mm3 (4.0-10.0)
[2023-09-20 22:03] LABS: EPI CELLS 31 /uL (0-25.1); HYALINE CASTS 0 /uL (0-3.1); PH,URINE 5.5 (5.0-8.0); URINE APPEARANCE CLEAR; URINE BACTERIA 573 /uL (0-1359); URINE BILIRUBIN NEGATIVE (NEGATIVE); URINE COLOR YELLOW; URINE GLUCOSE (UA) NEGATIVE (NEGATIVE); URINE KETONE NEGATIVE (NEGATIVE); URINE LEUK ESTERASE NEGATIVE (NEGATIVE); URINE NITRITE NEGATIVE (NEGATIVE); URINE PROTEIN NEGATIVE (NEGATIVE); URINE RBC 27 /uL (0-23.9); URINE WBC 10 /uL (0-25.8)
[2023-09-20 22:18] LABS: POTASSIUM 3.7 mmol/L (3.5-5.1)
[2023-09-20 22:20] LABS: BLOOD UREA NITROGEN 12.1 mg/dL (7-18)
[2023-09-20 22:25] LABS: BILIRUBIN,TOTAL 0.4 mg/dL (0.2-1); TOT PROT 7.4 g/dl (6.4-8.2)
[2023-09-21] MEDS: oxyCODONE HCL 5 MG TABLET PO ONE (00:07)
[2023-09-21] MEDS ORDERED: oxyCODONE HCL 5 MG TABLET ONE (00:14)
[2023-09-21 16:50] LABS: HIV INTERPRETATION NEGATIVE (NEGATIVE)
== END 2023-09-21 01:40 | disposition home or self-care (01) ==
LOC: JER 20:22
DX: R07.2 Precordial pain (principal); R31.9 Hematuria, unspecified; R53.1 Weakness; M79.10 Myalgia, unspecified site; Z20.822 Contact with and (suspected) exposure to COVID-19
CPT/HCPCS: 0241U-QW; 36415; 71045-TC-FY; 80053; 81003; 84484; 84703; 85025; 87086; 87389; 93005; 93010; 93970-TC; 99285-25

== ENCOUNTER 2024-07-09 22:17 | Emergency (ER) | payer OTHER ==
[2024-07-09 22:27] VITALS: BP 143/95; PULSE 83; RESP 17; TEMP 97.9; BMI 33.7
[2024-07-09 23:28] LABS: ABSOLUTE IMMATURE GRANULOCYTES 0.03 x10^3/uL (0.0-0.031); BASOPHILS # 0.05 x10^3/uL (0.01-0.08); EOSINOPHIL % 2.8 % (0.7-5.8); EOSINOPHILS # 0.26 x10^3/uL (0.04-0.36); HEMOGLOBIN 15.6 g/dL (11.2-15.7); MCHC 33.9 g/dl (32.2-35.5); MEAN CELL VOLUME 93.7 fl (79.4-94.8); MEAN PLT VOLUME 9.2 fl (9.4-12.3); MONOCYTE # 0.85 x10^3/uL (0.24-0.86); MONOCYTE % 9.1 % (4.7-12.5); PLATELET COUNT 267 x10^3/uL (182-369); RDW 11.9 % (12.2-17.1)
[2024-07-09 23:51] LABS: POTASSIUM 4.2 mmol/L (3.5-5.1)
[2024-07-09 23:53] LABS: ALBUMIN 3.8 g/dl (3.4-5.0); BLOOD UREA NITROGEN 9.6 mg/dL (7-18); CALCIUM 9.3 mg/dL (8.5-10.1); MAGNESIUM 2.1 mg/dL (1.8-2.4)
[2024-07-09 23:57] LABS: CREATININE 0.9 mg/dL (0.55-1.3)
[2024-07-09 23:58] LABS: BILIRUBIN,TOTAL 0.2 mg/dL (0.2-1); TOT PROT 7.1 g/dl (6.4-8.2)
[2024-07-10] MEDS: FOLIC ACID 5 MG/1 ML SQ ONE (00:50)
== END 2024-07-10 00:52 | disposition home or self-care (01) ==
LOC: JER 22:17
PROC: 3E013GC Introduction of Other Therapeutic Substance into Subcutaneous Tissue, Percutaneous Approach (ICD-10-PCS; principal; 2024-07-10)
DX: R42 Dizziness and giddiness (principal); R07.9 Chest pain, unspecified; R53.83 Other fatigue; R51.9 Headache, unspecified; M79.601 Pain in right arm; M79.602 Pain in left arm; M79.604 Pain in right leg; M79.605 Pain in left leg
CPT/HCPCS: 0241U-QW; 36415; 80053; 83735; 84484; 84703; 85025; 93005; 93010; 99284-25

== ENCOUNTER 2024-10-29 22:00 | Emergency (ER) | payer OTHER ==
[2024-10-29 22:10] VITALS: RESP 18; BMI 36.1
[2024-10-29] MEDS ORDERED: ACETAMINOPHEN INJECTION 100 ML ONE (22:53)
[2024-10-29] MEDS: ACETAMINOPHEN 1000 MG/100 ML BAG IVPB ONE (23:21)
[2024-10-29 23:51] LABS: ABSOLUTE IMMATURE GRANULOCYTES 0.03 x10^3/uL (0.0-0.031); BASOPHILS # 0.05 x10^3/uL (0.01-0.08); EOSINOPHIL % 2.6 % (0.7-5.8); EOSINOPHILS # 0.25 x10^3/uL (0.04-0.36); MCHC 33.6 g/dl (32.2-35.5); MEAN CELL VOLUME 95.7 fl (79.4-94.8); MEAN PLT VOLUME 9.6 fl (9.4-12.3); MONOCYTE # 0.71 x10^3/uL (0.24-0.86); MONOCYTE % 7.3 % (4.7-12.5); RDW 12.6 % (12.2-17.1)
[2024-10-29 23:56] LABS: EPI CELLS >36 /uL (0-25.1); HYALINE CASTS 2 /uL (0-3.1); URINE APPEARANCE CLOUDY; URINE BACTERIA >9,000 /uL (0-1359); URINE BILIRUBIN NEGATIVE (NEGATIVE); URINE COLOR YELLOW; URINE GLUCOSE (UA) NEGATIVE (NEGATIVE); URINE KETONE TRACE (NEGATIVE); URINE LEUK ESTERASE TRACE (NEGATIVE); URINE NITRITE NEGATIVE (NEGATIVE); URINE PROTEIN NEGATIVE (NEGATIVE); URINE UROBILINOGEN 1.0 mg/dL (0.2-1.0); URINE WBC 50 /uL (0-25.8)
[2024-10-29 23:59] LABS: URINE RBC 61.5 /uL (0-23.9)
[2024-10-30 00:13] LABS: CO2 28.0 mmol/L (21-32); GLUCOSE,RANDOM 117.0 mg/dL (74-106)
[2024-10-30 00:16] LABS: SGOT/AST 27.0 U/L (15-37); SGPT/ALT 19.0 U/L (13-61)
[2024-10-30 00:17] LABS: CREATININE 0.8 mg/dL (0.55-1.3)
[2024-10-30 00:18] LABS: TOT PROT 6.5 g/dl (6.4-8.2)
[2024-10-30 00:19] LABS: ALK PHOS 83.0 U/L (45-117)
[2024-10-30] MEDS ORDERED: CEFTRIAXONE 1 GM/50 ML BAG ONE (00:20)
[2024-10-30] MEDS ORDERED: KETOROLAC TROMETHAMINE 15 MG/ML VIAL ONE (00:20)
[2024-10-30] MEDS: KETOROLAC TROMETHAMINE 15 MG/ML VIAL IVPUSH ONE (00:26)
[2024-10-30] MEDS: CEFTRIAXONE 1 GM in DEXTROSE 5%-WATER - 50 ML IVPB ONE (00:26)
[2024-10-30 00:38] VITALS: BP 138/84; PULSE 82; TEMP 98.8
[2024-10-30 01:05] LABS: HIV INTERPRETATION NEGATIVE (NEGATIVE)
[2024-10-30 01:06] LABS: HCV DIAGNOSTIC IN-HOUSE W/RFLX NON-REACTIVE (NONREACTIVE)
== END 2024-10-30 01:41 | disposition home or self-care (01) ==
LOC: JER 22:00
PROC: 3E033NZ Introduction of Analgesics, Hypnotics, Sedatives into Peripheral Vein, Percutaneous Approach (ICD-10-PCS; 2024-10-29)
PROC: 3E03329 Introduction of Other Anti-infective into Peripheral Vein, Percutaneous Approach (ICD-10-PCS; principal; 2024-10-30)
PROC: 3E0333Z Introduction of Anti-inflammatory into Peripheral Vein, Percutaneous Approach (ICD-10-PCS; 2024-10-30)
DX: N10 Acute pyelonephritis (principal); R11.0 Nausea; R30.0 Dysuria; R31.9 Hematuria, unspecified; R68.83 Chills (without fever); R19.7 Diarrhea, unspecified; R10.84 Generalized abdominal pain
CPT/HCPCS: 36415; 74176-TC; 80053; 81003; 84703; 85025; 86803; 87086; 87389; 93005; 93010; 99285-25

== ENCOUNTER 2024-11-04 15:20 | Inpatient (IN) | payer OTHER ==
[2024-11-04 16:08] LABS: EPI CELLS >36 /uL (0-25.1); HYALINE CASTS 1 /uL (0-3.1); URINE APPEARANCE CLEAR; URINE BACTERIA 114 /uL (0-1359); URINE BILIRUBIN NEGATIVE (NEGATIVE); URINE COLOR DK YELLOW; URINE GLUCOSE (UA) NEGATIVE (NEGATIVE); URINE KETONE NEGATIVE (NEGATIVE); URINE LEUK ESTERASE TRACE (NEGATIVE); URINE NITRITE NEGATIVE (NEGATIVE); URINE PROTEIN NEGATIVE (NEGATIVE); URINE RBC 54 /uL (0-23.9); URINE UROBILINOGEN 1.0 mg/dL (0.2-1.0); URINE WBC 5 /uL (0-25.8)
[2024-11-04] MEDS ORDERED: ACETAMINOPHEN INJECTION 100 ML ONE (16:34)
[2024-11-04] MEDS ORDERED: MEROPENEM 1 GM VIAL (RESTRICTED TO ID) IVPB ONE (16:34)
[2024-11-04 16:35] LABS: MCHC 34.2 g/dl (32.2-35.5); MEAN CELL VOLUME 94.3 fl (79.4-94.8); MEAN PLT VOLUME 9.0 fl (9.4-12.3); RDW 12.7 % (12.2-17.1)
[2024-11-04] MEDS: MEROPENEM 1 GM in DEXTROSE 5%-WATER 100 ML IVPB ONE (16:44)
[2024-11-04] MEDS: ACETAMINOPHEN 1000 MG/100 ML BAG IVPB ONE (16:46)
[2024-11-04 16:55] LABS: CO2 28.0 mmol/L (21-32); GLUCOSE,RANDOM 94.0 mg/dL (74-106)
[2024-11-04 16:58] LABS: CREATININE 0.9 mg/dL (0.55-1.3); SGOT/AST 15.0 U/L (15-37); SGPT/ALT 20.0 U/L (13-61)
[2024-11-04] MEDS: morphine CARPU-JECT 4 MG/1 ML DISP.SYRIN IVPUSH ONE (16:58)
[2024-11-04 17:00] LABS: TOT PROT 6.8 g/dl (6.4-8.2)
[2024-11-04 17:01] LABS: ALK PHOS 85.0 U/L (45-117)
[2024-11-04] MEDS ORDERED: PATIENT'S OWN MEDICATION (NON-FORMULARY) (Oxycodone Hcl/Acetaminophen [Oxycodone-Acetamino PO PRN (23:44)
[2024-11-05] MEDS ORDERED: MEROPENEM 1 GM in DEXTROSE 5%-WATER 100 ML IVPB SCH (02:00)
[2024-11-05] MEDS: ACETAMINOPHEN 325 MG TABLET (FP) PO PRN (02:01)
[2024-11-05 02:37] VITALS: BMI 35.5
[2024-11-05] MEDS: FLUCONAZOLE 150 MG TABLET PO ONE (02:43)
[2024-11-05] MEDS: hydrOXYzine PAMOATE 25 MG CAPSULE (FP) PO SCH ×2 (06:22→21:06)
[2024-11-05] MEDS: LEVOTHYROXINE NA 150 MCG TABLET PO SCH (06:22)
[2024-11-05 08:12] LABS: ABSOLUTE IMMATURE GRANULOCYTES 0.03 x10^3/uL (0.0-0.031); BASOPHILS # 0.06 x10^3/uL (0.01-0.08); EOSINOPHIL % 3.5 % (0.7-5.8); EOSINOPHILS # 0.31 x10^3/uL (0.04-0.36); MCHC 33.6 g/dl (32.2-35.5); MEAN CELL VOLUME 95.1 fl (79.4-94.8); MEAN PLT VOLUME 9.0 fl (9.4-12.3); MONOCYTE # 0.77 x10^3/uL (0.24-0.86); MONOCYTE % 8.6 % (4.7-12.5); RDW 12.9 % (12.2-17.1)
[2024-11-05 09:18] LABS: CO2 29.0 mmol/L (21-32)
[2024-11-05 09:19] LABS: GLUCOSE,RANDOM 78.0 mg/dL (74-106)
[2024-11-05 09:21] LABS: CREATININE 0.9 mg/dL (0.55-1.3); SGOT/AST 10.0 U/L (15-37); SGPT/ALT 15.0 U/L (13-61)
[2024-11-05 09:23] LABS: TOT PROT 5.8 g/dl (6.4-8.2)
[2024-11-05 09:24] LABS: ALK PHOS 70.0 U/L (45-117)
[2024-11-05] MEDS ORDERED: PATIENT'S OWN MEDICATION (NON-FORMULARY) (Cariprazine Hcl [Vraylar] 3 MG Capsule) PO SCH (10:00)
[2024-11-05] MEDS: FOLIC ACID 1 MG TABLET (FP) PO SCH (10:50)
[2024-11-05] MEDS: ENOXAPARIN NA (PORCINE) 40 MG/0.4 ML DISP.SYRIN SQ SCH (10:50)
[2024-11-05] MEDS: LORATADINE 10 MG TABLET PO SCH (10:50)
[2024-11-05] MEDS: valACYclovir HCL 500 MG TABLET (FP) PO SCH (10:50)
[2024-11-05] MEDS: ERTAPENEM SODIUM 1 GM in SODIUM CHLORIDE 50 ML IVPB SCH (10:52)
[2024-11-05] MEDS: ATENOLOL 50 MG TABLET (FP) PO SCH (11:12)
[2024-11-05] MEDS: SODIUM CHLORIDE 0.9% 500 ML INFUS.BAG IV ONE (16:37)
[2024-11-05] MEDS: traZODone HCL 50 MG TABLET (FP) PO SCH (21:06)
[2024-11-05] MEDS: PRAZOSIN HCL 1 MG CAPSULE PO SCH (21:10)
[2024-11-06 01:26] LABS: HIV INTERPRETATION NEGATIVE (NEGATIVE)
[2024-11-06 01:30] LABS: HCV DIAGNOSTIC IN-HOUSE W/RFLX NON-REACTIVE (NONREACTIVE)
[2024-11-06 08:14] LABS: ABSOLUTE IMMATURE GRANULOCYTES 0.02 x10^3/uL (0.0-0.031); BASOPHILS # 0.04 x10^3/uL (0.01-0.08); EOSINOPHIL % 3.9 % (0.7-5.8); EOSINOPHILS # 0.28 x10^3/uL (0.04-0.36); MCHC 33.7 g/dl (32.2-35.5); MEAN CELL VOLUME 96.2 fl (79.4-94.8); MEAN PLT VOLUME 9.0 fl (9.4-12.3); MONOCYTE # 0.72 x10^3/uL (0.24-0.86); MONOCYTE % 10.0 % (4.7-12.5); RDW 12.7 % (12.2-17.1)
[2024-11-06 08:43] LABS: CO2 29.0 mmol/L (21-32); GLUCOSE,RANDOM 84.0 mg/dL (74-106)
[2024-11-06 08:46] LABS: CREATININE 0.9 mg/dL (0.55-1.3)
[2024-11-06] MEDS: ACETAMINOPHEN 1000 MG/100 ML BAG IVPB PRN (15:11)
[2024-11-07 09:20] LABS: ABSOLUTE IMMATURE GRANULOCYTES 0.03 x10^3/uL (0.0-0.031); BASOPHILS # 0.05 x10^3/uL (0.01-0.08); EOSINOPHIL % 3.4 % (0.7-5.8); EOSINOPHILS # 0.25 x10^3/uL (0.04-0.36); MCHC 33.5 g/dl (32.2-35.5); MEAN CELL VOLUME 96.6 fl (79.4-94.8); MEAN PLT VOLUME 9.3 fl (9.4-12.3); MONOCYTE # 0.76 x10^3/uL (0.24-0.86); MONOCYTE % 10.2 % (4.7-12.5); RDW 12.5 % (12.2-17.1)
[2024-11-07] MEDS ORDERED: CEFTRIAXONE 1 GM in DEXTROSE 5%-WATER - 50 ML IVPB SCH (10:00)
[2024-11-07] MEDS: ERTAPENEM SODIUM 1 GM in SODIUM CHLORIDE 50 ML IVPB SCH (10:43)
[2024-11-07 10:45] LABS: CO2 29.0 mmol/L (21-32); GLUCOSE,RANDOM 72.0 mg/dL (74-106)
[2024-11-07 10:47] LABS: CREATININE 0.89 mg/dL (0.55-1.3); SGOT/AST 11.0 U/L (15-37); SGPT/ALT 19.0 U/L (13-61)
[2024-11-07 10:50] LABS: ALK PHOS 74.0 U/L (45-117)
[2024-11-07 10:52] LABS: TOT PROT 5.9 g/dl (6.4-8.2)
[2024-11-07] MEDS: PHENAZOPYRIDINE HCL 100 MG TABLET (FP) PO ONE (11:56)
[2024-11-07 12:47] VITALS: RESP 16
[2024-11-07 16:13] VITALS: BP 120/84; PULSE 84; TEMP 98.5
== END 2024-11-07 15:38 | disposition home or self-care (01) | DRG 463 ==
LOC: JER 15:20 → OBSVTOIN 21:56 → JERBED 21:56 → J5S 23:53
PROVIDERS: ADMIT Student in an Organized Health Care Education/Training Program; ATTEND Internal Medicine
DX: N39.0 Urinary tract infection, site not specified (principal); I10 Essential (primary) hypertension; B37.31 Acute candidiasis of vulva and vagina; B96.20 Unspecified Escherichia coli [E. coli] as the cause of diseases classified elsewhere; M06.9 Rheumatoid arthritis, unspecified; E66.9 Obesity, unspecified; M79.7 Fibromyalgia; R31.9 Hematuria, unspecified
CPT/HCPCS: 36415; 74176-TC; 80048; 80053; 81003; 83690; 83735; 84100; 85025; 85027; 86803; 87040; 87086; 87389; 99285-25